=== PATIENT | female | born 1975 | race Caucasian/White ===

== ENCOUNTER → 2016-09-15 | Outpatient (CLI) | payer OTHER ==
[2015-12-10 10:24] VITALS: BP 113/70
[~2016-09-15] MED LIST: ALPR0.25 PO; BUPR150T8 PO; DICL75TA PO; LORA10TA68 PO; PANT40TA3 PO; TOPI25TA32 PO
[2016-09-16 16:22] LABS: HEP B SURFACE ABDY Non Reactive (.)
== END | disposition home or self-care (01) ==
LOC: LAB 15:49
PROVIDERS: ATTEND Nurse Practitioner Family
DX: Z00.00 Encounter for general adult medical examination without abnormal findings (principal)
CPT/HCPCS: 36415; 86706; 86735; 86762; 86765; 86787

== ENCOUNTER 2016-10-27 22:19 | Inpatient (IN) | payer OTHER ==
[~2016-10-27] VITALS: Ht 160 cm; Wt 62.4 kg
[2016-10-27 22:52] LABS: BASO # 0.1 x10^3/uL (0.0-0.2); BASO % 1 % (0-3); EOS % 1 % (0-3); HEMATOCRIT 38.8 % (36.0-47.0); HEMOGLOBIN 12.8 g/dL (12.0-15.5); LYMPH # 2.1 x10^3/uL (1.0-4.8); LYMPH % 31 % (24-48); MEAN CORPUSCULAR HEMOGLOBIN 32 pg (25-35); MEAN CORPUSCULAR HGB CONC 33 g/dL (31-37); MEAN CORPUSCULAR VOLUME 98 fL (79-100); MONO % 9 % (0-9); NEUT % 58 % (31-73); PLATELET COUNT 202 x10^3/uL (140-400); RED BLOOD COUNT 3.96 x10^6/uL (3.50-5.40); RED CELL DISTRIBUTION WIDTH 12.9 % (11.5-14.5)
[2016-10-27 23:04] LABS: CALCIUM 8.8 mg/dL (8.5-10.1); CREATININE 0.8 mg/dL (0.6-1.0); GFR 78.7; POTASSIUM 3.5 mmol/L (3.5-5.1)
[2016-10-27 23:10] LABS: ALBUMIN 3.6 g/dL (3.4-5.0); DIRECT BILIRUBIN 0.1 mg/dL (0.0-0.2); MAGNESIUM 1.8 mg/dL (1.8-2.4); TOTAL BILIRUBIN 0.3 mg/dL (0.2-1.0)
--- NOTE | 2016-10-27 23:36 | PHYS DOC ---
Past Medical History Past Medical History: Hepatitis, Migraines Past Surgical History: Other Additional Past Surgical Histo: Right Wrist surgery; endometrial ablation Alcohol Use: Occasionally Drug Use: None Adult General Chief Complaint Chief Complaint: CHEST PAIN HPI HPI Patient is a 40 year old female who drove herself to the emergency department with the complaint of midsternal chest pain. The patient was out running at about 9:15 PM when she developed midsternal chest pain that went through to her back. It was about a 2-3 out of 10. She had no nausea, no diaphoresis, no shortness of air with it. She slowed down and walked and went home and it did improve. She ended up deciding to come in and get it checked out. On arrival it' s about a 2 out of 10. She had this pain once before a couple of months ago when she was at the gym running on the treadmill. She stopped running and the pain went away by itself. She had her blood pressure checked and it was okay, she never did get it checked out. Other than that she's had no episodes of chest pain. Patient denies history of hypertension, diabetes, or elevated cholesterol. She previously smoked cigarettes but she quit. She has no family history. PCP Dr. 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 Review of Systems Review of Systems Constitutional: Denies fever or chills [] Eyes: Denies change in visual acuity, redness, or eye pain [] HENT: Denies nasal congestion or sore throat [] Respiratory: Denies cough or shortness of breath [] Cardiovascular: As in history of present illness GI: Denies abdominal pain, nausea, vomiting, bloody stools or diarrhea [] : Denies dysuria or hematuria [] Musculoskeletal: Denies back pain or joint pain [] Integument: Denies rash or skin lesions [] Neurologic: Denies headache, focal weakness or sensory changes [] Allergies Allergies Allergies Coded Allergies Type Severity Reaction Last Updated Verified propoxyphene Allergy Intermediate Hives 02/25/14 Yes Physical Exam Physical Exam Constitutional: Well developed, well nourished, no acute distress, non-toxic appearance. Alert, mentating normally, vital signs stable HENT: Normocephalic, atraumatic, bilateral external ears normal, nose normal. [ ] Eyes: conjunctiva normal, no discharge. [] Neck: Normal range of motion, no stridor. [] Cardiovascular:Heart rate regular rhythm, no murmur [] Lungs & Thorax: Bilateral breath sounds clear to auscultation [] Abdomen: Bowel sounds normal, soft, no tenderness, no masses, no pulsatile masses. [] Skin: Warm, dry, no erythema, no rash. [] Extremities: No tenderness, no cyanosis, no clubbing, ROM intact, no edema. [] Neurologic: Alert and oriented X 3, normal motor function, normal sensory function, no focal deficits noted. [] Current Patient Data Vital Signs Vital Signs Date Time Temp Pulse Resp B/P (MAP) Pulse Ox O2 Delivery O2 Flow Rate FiO2 10/27/16 23:15 66 16 141/85 (103) 99 Room Air 10/27/16 22:25 99.0 99.0 Lab Values Laboratory Tests Test 10/27/16 22:30 White Blood Count 7.0 x10^3/uL (4.0-11.0) Red Blood Count 3.96 x10^6/uL (3.50-5.40) Hemoglobin 12.8 g/dL (12.0-15.5) Hematocrit 38.8 % (36.0-47.0) Mean Corpuscular Volume 98 fL (79-100) Mean Corpuscular Hemoglobin 32 pg (25-35) Mean Corpuscular Hemoglobin Concent 33 g/dL (31-37) Red Cell Distribution Width 12.9 % (11.5-14.5) Platelet Count 202 x10^3/uL (140-400) Neutrophils (%) (Auto) 58 % (31-73) Lymphocytes (%) (Auto) 31 % (24-48) Monocytes (%) (Auto) 9 % (0-9) Eosinophils (%) (Auto) 1 % (0-3) Basophils (%) (Auto) 1 % (0-3) Neutrophils # (Auto) 4.1 x10^3uL (1.8-7.7) Lymphocytes # (Auto) 2.1 x10^3/uL (1.0-4.8) Monocytes # (Auto) 0.6 x10^3/uL (0.0-1.1) Eosinophils # (Auto) 0.1 x10^3/uL (0.0-0.7) Basophils # (Auto) 0.1 x10^3/uL (0.0-0.2) Prothrombin Time 13.0 SEC (11.7-14.0) Prothrombin Time INR 1.0 (0.8-1.1) Sodium Level 138 mmol/L (136-145) Potassium Level 3.5 mmol/L (3.5-5.1) Chloride Level 103 mmol/L (98-107) Carbon Dioxide Level 28 mmol/L (21-32) Anion Gap 7 (6-14) Blood Urea Nitrogen 17 mg/dL (7-20) Creatinine 0.8 mg/dL (0.6-1.0) Estimated GFR (Cockcroft-Gault) 78.7 Glucose Level 106 mg/dL (70-99) H Calcium Level 8.8 mg/dL (8.5-10.1) Magnesium Level 1.8 mg/dL (1.8-2.4) Total Bilirubin 0.3 mg/dL (0.2-1.0) Direct Bilirubin 0.1 mg/dL (0.0-0.2) Aspartate Amino Transferase (AST) 17 U/L (15-37) Alanine Aminotransferase (ALT) 29 U/L (14-59) Alkaline Phosphatase 50 U/L (46-116) Creatine Kinase 117 U/L (26-192) Creatine Kinase MB (Mass) 1.0 ng/mL (0.0-3.6) Creatine Kinase MB Relative Index 0.9 % (0-4) Troponin I Quantitative 0.024 ng/mL (0.000-0.055) YH-Chj-E-Type Natriuretic Peptide 27 pg/mL (0-124) Total Protein 7.0 g/dL (6.4-8.2) Albumin 3.6 g/dL (3.4-5.0) Laboratory Tests 10/27/16 22:30 Laboratory Tests 10/27/16 22:30 EKG EKG 12-lead EKG read by me. Sinus rhythm. Heart rate 54. There are no acute ST or T wave changes indicative of ischemia or infarction. No STEMI. 2229 [] Radiology/Procedures Radiology/Procedures One view portable chest x-ray read by me. No acute cardiopulmonary abnormality. [] Course & Med Decision Making Course & Med Decision Making Pertinent Labs and Imaging studies reviewed. (See chart for details) 40-year-old female presents after an episode of mid chest pain which occurred with running and improved with rest. EKG normal. Troponin is mildly elevated at 0.024. I advised the patient that I would recommend admission for serial enzymes and cardiology consultation. She is agreeable to that plan. She remained stable and pain-free in the emergency department. I discussed the case with Dr. gonzalez, [facility]. He will admit the patient. I wrote bridge orders. [] Dragon Disclaimer Dragon Disclaimer This electronic medical record was generated, in whole or in part, using a voice recognition dictation system. Departure Departure Impression: Primary Impression: Chest pain Additional Impression: Elevated troponin Disposition: ADMITTED INPATIENT Admitting Physician: Jessica Gonzalez Condition: STABLE Referrals: JACKELYN VÁZQUEZ MD (PCP) Problem Qualifiers JASKARAN DENIS MD October 27, 2016 23:36
[2016-10-27] MEDS ORDERED: ASPIRIN CHEWABLE 81 MG TABLET. PO ONE (23:55)
[2016-10-28] VITALS (15 sets, daily range): BP systolic 98–130; BP diastolic 55–78
[2016-10-28] MEDS ORDERED: ALPRAZolam 0.25 MG TABLET PO PRN ×2 (01:30→12:45)
--- NOTE | 2016-10-28 06:15 | EKG ---
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
--- NOTE | 2016-10-28 08:00 | RAD ---
Portable chest, 10/27/2016: History: Chest pain The heart size and pulmonary vascularity are normal. No pulmonary infiltrates are seen. There is no evidence of pleural fluid. IMPRESSION: No acute cardiopulmonary abnormality is detected.
--- NOTE | 2016-10-28 08:54 | PDOC2 ---
LON DUMONT WIRE STRAIGHTENER 10/28/16 0854: CARDIAC CONSULT DATE OF CONSULT Date of Consult DATE: 10/28/16 TIME: 08:36 REASON FOR CONSULT Reason for Consult: Chest pain, elevated trop REFERRING PHYSICIAN Referring Physician: Lito SOURCE Source: Chart review, Patient HISTORY OF PRESENT ILLNESS HISTORY OF PRESENT ILLNESS This is a pleasant 40 yo female admitted for complains of chest pain. Reports that at 1845 last night he was eating apple when she started having midsternal pressure. This was about 2/10 in intensity in 0-10 pain scale and thought that maybe the apple got stuck. This discomfort did not go away. She went ahead and run as part of her exercise and 8 minutes to her running her CP got worse radiated to her midback then to her shoulders. She felt nauseated. No significant diaphoresis but felt a little SOA. Lately she has been fatigue although prior to this she has been tolerating her exercise regimen which is 3- 4 times weekly running about 2-3 miles each time. Denies any prior CAD, VTE, falls or any injury. She did have an episode in August in which she had the same chest pain which went to her arm and jaw but resolved the same day and has not recurred till now. PAST MEDICAL HISTORY Cardiovascular: No pertinent hx Pulmonary: No pertinent hx CENTRAL NERVOUS SYSTEM: Migraine, Other (right ventricle arachnoid cyst 2005) GI: GERD Heme/Onc: No pertinent hx Hepatobiliary: Hep A/B/C (C) Psych: Anxiety, Depression Musculoskeletal: Other (carpal tunnel syndrome) Rheumatologic: No pertinent hx Infectious disease: Other (mononucleosis 2009) ENT: No pertinent hx Renal/: No pertinent hx Endocrine: Hypothyroidism Dermatology: No pertinent hx PAST SURGICAL HISTORY Past Surgical History: Other (right carpal tunnel release; endometrial ablation ) FAMILY HISTORY Family History: Coronary Artery Disease (grandfather paternal side), High Cholestrol, Hypertension (father), Other (father has AFIB) SOCIAL HISTORY Social History 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 Smoke: No (quit in 2002, >20 pk yr) ALCOHOL: occassional Drugs: Other (quit meth and cocaine in 2002) Lives: with Family CURRENT MEDICATIONS CURRENT MEDICATIONS Current Medications Medications (Trade) Dose Ordered Sig/Lauren Route PRN Reason Start Time Stop Time Status Last Admin Dose Admin Aspirin (Children'S Aspirin) 324 mg 1X ONCE PO 10/27/16 23:55 10/27/16 23:56 DC 10/28/16 00:01 Alprazolam (Xanax) 0.25 mg PRN Q8HRS PRN PO ANXIETY / AGITATION 10/28/16 01:30 10/28/16 01:34 ALLERGIES ALLERGIES: Coded Allergies: propoxyphene (Verified Allergy, Intermediate, Hives, 02/25/14) ROS Review of System 14 point ROS evaluated with pertinent positives noted per HPI PHYSICAL EXAM General: Alert, Oriented X3, Cooperative, No acute distress HEENT: Atraumatic, Mucous membr. moist/pink Lungs: Clear to auscultation, Normal air movement Heart: Regular rate, Normal S1, Normal S2, No murmurs Abdomen: Soft, No tenderness Extremities: No cyanosis, No edema Skin: No breakdown, No significant lesion Neuro: Normal speech, Sensation intact Psych/Mental Status: Mental status NL, Mood NL MUSCULOSKELETAL: Osteoarthritic changes both hands VITALS VITALS Vital Signs Date Time Temp Pulse Resp B/P (MAP) Pulse Ox O2 Delivery O2 Flow Rate FiO2 10/28/16 03:00 67 10/28/16 01:00 Room Air 10/28/16 00:45 97.7 22 130/78 (95) 100 97.7 LABS Lab: Laboratory Tests Test 10/27/16 22:30 10/28/16 05:40 White Blood Count 7.0 x10^3/uL (4.0-11.0) Red Blood Count 3.96 x10^6/uL (3.50-5.40) Hemoglobin 12.8 g/dL (12.0-15.5) Hematocrit 38.8 % (36.0-47.0) Mean Corpuscular Volume 98 fL (79-100) Mean Corpuscular Hemoglobin 32 pg (25-35) Mean Corpuscular Hemoglobin Concent 33 g/dL (31-37) Red Cell Distribution Width 12.9 % (11.5-14.5) Platelet Count 202 x10^3/uL (140-400) Neutrophils (%) (Auto) 58 % (31-73) Lymphocytes (%) (Auto) 31 % (24-48) Monocytes (%) (Auto) 9 % (0-9) Eosinophils (%) (Auto) 1 % (0-3) Basophils (%) (Auto) 1 % (0-3) Neutrophils # (Auto) 4.1 x10^3uL (1.8-7.7) Lymphocytes # (Auto) 2.1 x10^3/uL (1.0-4.8) Monocytes # (Auto) 0.6 x10^3/uL (0.0-1.1) Eosinophils # (Auto) 0.1 x10^3/uL (0.0-0.7) Basophils # (Auto) 0.1 x10^3/uL (0.0-0.2) Prothrombin Time 13.0 SEC (11.7-14.0) Prothromb Time International Ratio 1.0 (0.8-1.1) Sodium Level 138 mmol/L (136-145) Potassium Level 3.5 mmol/L (3.5-5.1) Chloride Level 103 mmol/L (98-107) Carbon Dioxide Level 28 mmol/L (21-32) Anion Gap 7 (6-14) Blood Urea Nitrogen 17 mg/dL (7-20) Creatinine 0.8 mg/dL (0.6-1.0) Estimated GFR (Cockcroft-Gault) 78.7 Glucose Level 106 mg/dL (70-99) Calcium Level 8.8 mg/dL (8.5-10.1) Magnesium Level 1.8 mg/dL (1.8-2.4) Total Bilirubin 0.3 mg/dL (0.2-1.0) Direct Bilirubin 0.1 mg/dL (0.0-0.2) Aspartate Amino Transf (AST/SGOT) 17 U/L (15-37) Alanine Aminotransferase (ALT/SGPT) 29 U/L (14-59) Alkaline Phosphatase 50 U/L (46-116) Creatine Kinase 117 U/L (26-192) Creatine Kinase MB (Mass) 1.0 ng/mL (0.0-3.6) Creatine Kinase MB Relative Index 0.9 % (0-4) Troponin I Quantitative 0.024 ng/mL (0.000-0.055) 0.412 ng/mL (0.000-0.055) UF-Qon-L-Type Natriuretic Peptide 27 pg/mL (0-124) Total Protein 7.0 g/dL (6.4-8.2) Albumin 3.6 g/dL (3.4-5.0) ASSESSMENT/PLAN ASSESSMENT/PLAN 1. NSTEMI: noted t wave inversions to septal leads which improved with follow up EKG. Trop increased to 0.4 2. Migraine: takes topamax, seen by Dr. Sanders in the past. 3. Hx of anxiety/depression. 4. GERD: takes prilosec at home 5. Hx of Hep C 6. Hx of hypothyroidism Recommendations 1. LHC today, risks and benefits explained and agreeable to proceed 2. TSH, lipids today 3. ASA received in ED. 4. TTE today Problems: JENELLE ABBOTT MD 10/28/16 1813: CARDIAC CONSULT ALLERGIES ALLERGIES: Coded Allergies: propoxyphene (Verified Allergy, Intermediate, Hives, 02/25/14) ASSESSMENT/PLAN ASSESSMENT/PLAN Pt. seen and examined. Agree with above HYDROLOGY PROFESSOR note. Underwent balloon angioplasty of a small vessel in the distal ramus intermedius branch. Spasm/spontaneous dissection cannot be excluded. Meds to include ASA, Ticagrelor and Statin. Low dose calcium channel blockers if titrated. Will follow along. Echo wnl. Normal cardiac exam. Problems: LON DUMONT APRN October 28, 2016 08:54 JENELLE ABBOTT MD October 28, 2016 18:13
--- NOTE | 2016-10-28 09:26 | EKG ---
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
[2016-10-28 09:27] LABS: CHOLESTEROL/HDL RATIO 2.4
--- NOTE | 2016-10-28 09:31 | PDOC1 ---
History and Physical Past Medical History CENTRAL NERVOUS SYSTEM: Other (right ventricle arachnoid cyst 2005) GI: GERD Hepatobiliary: Hep A/B/C (C) Psych: Anxiety, Depression Infectious disease: Other (mononucleosis 2009) Past Surgical History Past Surgical History: Other (right carpal tunnel release; endometrial ablation ) Family History Family History: High Cholestrol, Hypertension (father) Social History Smoke: No (quit in 2002, >20 pk yr) ALCOHOL: occassional Drugs: Other (quit meth and cocaine in 2002) Current Problem List Problem List Problems Medical Problems: (1) Chest pain Status: Acute (2) Elevated troponin Status: Acute Current Medications Current Medications Current Medications Medications (Trade) Dose Ordered Sig/Lauren Start Time Stop Time Status Last Admin Dose Admin Alprazolam (Xanax) 0.25 mg PRN Q8HRS PRN 10/28/16 01:30 10/28/16 01:34 0.25 MG Aspirin (Children'S Aspirin) 324 mg 1X ONCE 10/27/16 23:55 10/27/16 23:56 DC 10/28/16 00:01 324 MG Allergies Allergies Allergies Coded Allergies Type Severity Reaction Last Updated Verified propoxyphene Allergy Intermediate Hives 02/25/14 Yes ROS Review of System CONSTITUTIONAL: No fever or chills EYES: No recent changes SKIN: No rash or itching CARDIOVASCULAR: chest pressure, no syncope, palpitations, or edema RESPIRATORY: No SOB or cough GASTROINTESTINAL: No nausea, vomiting or abdominal pain NEUROLOGICAL: No headaches or weakness ENDOCRINE: No cold or heat intolerance GENITOURINARY: No urgency or frequency of urination MUSCULOSKELETAL: No back pain or joint pain LYMPHATICS: No enlarged lymph nodes PSYCHIATRIC: No anxiety or depression Physical Exam Physical Exam GEN.: No apparent distress. Alert and oriented. HEENT: Head is normocephalic, atraumatic NECK: Supple. no jvd LUNGS: Clear to auscultation. normal airflow. HEART: RRR, S1, S2 present. Peripheral pulses intact ABDOMEN: Soft, nontender. Positive bowel sounds. EXTREMITIES: Without any cyanosis. NEUROLOGIC: Normal speech, normal tone PSYCHIATRIC: Normal affect, normal mood. SKIN: No ulcerations Vitals Vitals Vital Signs Date Time Temp Pulse Resp B/P (MAP) Pulse Ox O2 Delivery O2 Flow Rate FiO2 10/28/16 07:00 98.7 60 18 109/70 (83) 98 Room Air 98.7 Labs Labs Laboratory Tests Test 10/27/16 22:30 10/28/16 05:40 White Blood Count 7.0 x10^3/uL (4.0-11.0) Red Blood Count 3.96 x10^6/uL (3.50-5.40) Hemoglobin 12.8 g/dL (12.0-15.5) Hematocrit 38.8 % (36.0-47.0) Mean Corpuscular Volume 98 fL (79-100) Mean Corpuscular Hemoglobin 32 pg (25-35) Mean Corpuscular Hemoglobin Concent 33 g/dL (31-37) Red Cell Distribution Width 12.9 % (11.5-14.5) Platelet Count 202 x10^3/uL (140-400) Neutrophils (%) (Auto) 58 % (31-73) Lymphocytes (%) (Auto) 31 % (24-48) Monocytes (%) (Auto) 9 % (0-9) Eosinophils (%) (Auto) 1 % (0-3) Basophils (%) (Auto) 1 % (0-3) Neutrophils # (Auto) 4.1 x10^3uL (1.8-7.7) Lymphocytes # (Auto) 2.1 x10^3/uL (1.0-4.8) Monocytes # (Auto) 0.6 x10^3/uL (0.0-1.1) Eosinophils # (Auto) 0.1 x10^3/uL (0.0-0.7) Basophils # (Auto) 0.1 x10^3/uL (0.0-0.2) Prothrombin Time 13.0 SEC (11.7-14.0) Prothromb Time International Ratio 1.0 (0.8-1.1) Sodium Level 138 mmol/L (136-145) Potassium Level 3.5 mmol/L (3.5-5.1) Chloride Level 103 mmol/L (98-107) Carbon Dioxide Level 28 mmol/L (21-32) Anion Gap 7 (6-14) Blood Urea Nitrogen 17 mg/dL (7-20) Creatinine 0.8 mg/dL (0.6-1.0) Estimated GFR (Cockcroft-Gault) 78.7 Glucose Level 106 mg/dL (70-99) Calcium Level 8.8 mg/dL (8.5-10.1) Magnesium Level 1.8 mg/dL (1.8-2.4) Total Bilirubin 0.3 mg/dL (0.2-1.0) Direct Bilirubin 0.1 mg/dL (0.0-0.2) Aspartate Amino Transf (AST/SGOT) 17 U/L (15-37) Alanine Aminotransferase (ALT/SGPT) 29 U/L (14-59) Alkaline Phosphatase 50 U/L (46-116) Creatine Kinase 117 U/L (26-192) Creatine Kinase MB (Mass) 1.0 ng/mL (0.0-3.6) Creatine Kinase MB Relative Index 0.9 % (0-4) Troponin I Quantitative 0.024 ng/mL (0.000-0.055) 0.412 ng/mL (0.000-0.055) AH-Wxd-R-Type Natriuretic Peptide 27 pg/mL (0-124) Total Protein 7.0 g/dL (6.4-8.2) Albumin 3.6 g/dL (3.4-5.0) Triglycerides Level 47 mg/dL (0-150) Cholesterol Level 171 mg/dL (0-200) LDL Cholesterol, Calculated 91 mg/dL (0-100) VLDL Cholesterol, Calculated 9 mg/dL (0-40) Non-HDL Cholesterol Calculated 100 mg/dL (0-129) HDL Cholesterol 71 mg/dL (40-60) Cholesterol/HDL Ratio 2.4 Laboratory Tests Test 10/27/16 22:30 10/28/16 05:40 White Blood Count 7.0 x10^3/uL (4.0-11.0) Red Blood Count 3.96 x10^6/uL (3.50-5.40) Hemoglobin 12.8 g/dL (12.0-15.5) Hematocrit 38.8 % (36.0-47.0) Mean Corpuscular Volume 98 fL (79-100) Mean Corpuscular Hemoglobin 32 pg (25-35) Mean Corpuscular Hemoglobin Concent 33 g/dL (31-37) Red Cell Distribution Width 12.9 % (11.5-14.5) Platelet Count 202 x10^3/uL (140-400) Neutrophils (%) (Auto) 58 % (31-73) Lymphocytes (%) (Auto) 31 % (24-48) Monocytes (%) (Auto) 9 % (0-9) Eosinophils (%) (Auto) 1 % (0-3) Basophils (%) (Auto) 1 % (0-3) Neutrophils # (Auto) 4.1 x10^3uL (1.8-7.7) Lymphocytes # (Auto) 2.1 x10^3/uL (1.0-4.8) Monocytes # (Auto) 0.6 x10^3/uL (0.0-1.1) Eosinophils # (Auto) 0.1 x10^3/uL (0.0-0.7) Basophils # (Auto) 0.1 x10^3/uL (0.0-0.2) Prothrombin Time 13.0 SEC (11.7-14.0) Prothromb Time International Ratio 1.0 (0.8-1.1) Sodium Level 138 mmol/L (136-145) Potassium Level 3.5 mmol/L (3.5-5.1) Chloride Level 103 mmol/L (98-107) Carbon Dioxide Level 28 mmol/L (21-32) Anion Gap 7 (6-14) Blood Urea Nitrogen 17 mg/dL (7-20) Creatinine 0.8 mg/dL (0.6-1.0) Estimated GFR (Cockcroft-Gault) 78.7 Glucose Level 106 mg/dL (70-99) Calcium Level 8.8 mg/dL (8.5-10.1) Magnesium Level 1.8 mg/dL (1.8-2.4) Total Bilirubin 0.3 mg/dL (0.2-1.0) Direct Bilirubin 0.1 mg/dL (0.0-0.2) Aspartate Amino Transf (AST/SGOT) 17 U/L (15-37) Alanine Aminotransferase (ALT/SGPT) 29 U/L (14-59) Alkaline Phosphatase 50 U/L (46-116) Creatine Kinase 117 U/L (26-192) Creatine Kinase MB (Mass) 1.0 ng/mL (0.0-3.6) Creatine Kinase MB Relative Index 0.9 % (0-4) Troponin I Quantitative 0.024 ng/mL (0.000-0.055) 0.412 ng/mL (0.000-0.055) RV-Djk-F-Type Natriuretic Peptide 27 pg/mL (0-124) Total Protein 7.0 g/dL (6.4-8.2) Albumin 3.6 g/dL (3.4-5.0) Triglycerides Level 47 mg/dL (0-150) Cholesterol Level 171 mg/dL (0-200) LDL Cholesterol, Calculated 91 mg/dL (0-100) VLDL Cholesterol, Calculated 9 mg/dL (0-40) Non-HDL Cholesterol Calculated 100 mg/dL (0-129) HDL Cholesterol 71 mg/dL (40-60) Cholesterol/HDL Ratio 2.4 VTE Prophylaxis Ordered VTE Prophylaxis Devices: Yes VTE Pharmacological Prophylaxi: Yes SHIVANI GREEN MD October 28, 2016 09:31
[2016-10-28] MEDS ORDERED: NITROGLYCERIN 200 MCG/2 ML SYRINGE FOR CATH/VASC LAB. ONE (09:40)
[2016-10-28] MEDS ORDERED: VERAPAMIL 5 MG/2 ML VIAL. ONE (09:40)
[2016-10-28] MEDS ORDERED: fentaNYL PF VIAL 100 MCG/2 ML VIAL ONE ×3 (09:41→11:39)
[2016-10-28] MEDS ORDERED: MIDAZOLAM HCL/PF 2 MG/2 ML VIAL. ONE ×3 (09:41→11:39)
[2016-10-28] MEDS ORDERED: HEPARIN for IV BOLUS 10,000 UNIT/10 ML VIAL. ONE (09:41)
[2016-10-28] MEDS ORDERED: LIDOCAINE 2% 20 ML VIAL. ONE (09:54)
[2016-10-28] MEDS ORDERED: IOHEXOL 300 MG/ML 100ML VIAL. ONE (09:54)
[2016-10-28] MEDS ORDERED: ASPIRIN 325 MG TABLET ONE (10:01)
[2016-10-28] MEDS ORDERED: IOHEXOL 300 MG/ML 100ML VIAL. IART ONE (10:15)
[2016-10-28] MEDS ORDERED: MIDAZOLAM HCL/PF 2 MG/2 ML VIAL. IV ONE (10:15)
[2016-10-28] MEDS ORDERED: NITROGLYCERIN 200 MCG/2 ML SYRINGE FOR CATH/VASC LAB. IART ONE (10:15)
[2016-10-28] MEDS ORDERED: fentaNYL PF VIAL 100 MCG/2 ML VIAL IV ONE (10:15)
[2016-10-28] MEDS ORDERED: HEPARIN for IV BOLUS 10,000 UNIT/10 ML VIAL. IART ONE (10:15)
[2016-10-28] MEDS ORDERED: VERAPAMIL 5 MG/2 ML VIAL. IART ONE (10:15)
[2016-10-28] MEDS ORDERED: NITROPRUSSIDE SODIUM 50 MG/2 ML VIAL IV ONE (10:25)
[2016-10-28] MEDS ORDERED: TIROFIBAN 5MG -0.9% NS 100 ML IV ONE ×2 (10:38→11:00)
[2016-10-28] MEDS ORDERED: PANTOPRAZOLE IV PUSH 40 MG VIAL. IVP ONE (10:45)
[2016-10-28] MEDS ORDERED: NITROPRUSSIDE 100MCG/ML SYRINGE. INT CORON ONE (11:00)
[2016-10-28] MEDS ORDERED: TICAGRELOR 90 MG TABLET. ONE (11:04)
--- NOTE | 2016-10-28 11:11 | HP ---
ADMIT DATE: 10/28/2016 CHIEF COMPLAINT: Chest pressure. HISTORY OF PRESENT ILLNESS: A 40-year-old female patient with prior history of dysphagia and GERD who presented to the ER with complaints of chest pressure. Symptoms started yesterday evening around 7 o'clock after she ate some apples. She described it as a midsternal chest pressure, and she tried to drink some water. However, symptoms did not go away. She works at a [employer], and she tried to take some aspirin, 4 tablets, and symptoms slowly weaned off. By the time she presented to the ER, she denies any chest pain. Her symptoms went to both shoulders and also back of her chest. The patient was working almost like 3 miles on treadmill every day. She never felt any chest pain or palpitations or syncope. She had a significant family history of coronary artery disease. At the time of my examination this morning, the patient denies any chest pain or shortness of breath. I did review her EKGs. Initial EKG showed T-wave inversions in V1 and V2, and repeat EKG showed resolution of T-wave inversions. PAST MEDICAL HISTORY: Migraine, GERD, depression, anxiety, and hepatitis A, B, and C. PAST SURGICAL HISTORY: Right carpal tunnel disease and endometrial ablation. FAMILY HISTORY: Coronary artery disease in grandfather and hyperlipidemia, hypertension, and one of her cousins below 40 years. SOCIAL HISTORY: Quit smoking, former smoker, more than 20 years. No alcohol, no drug abuse. REVIEW OF SYSTEMS: Please see my electronic H and P. PHYSICAL EXAMINATION: Please see my electronic H and P. ALLERGIES: PROPOXYPHENE. LABORATORY FINDINGS: CBC within normal limits. Chemistry is within normal limits. Troponin first set 0.024, second one 0.42. Lipid panel within normal limits. TSH 5.84. EKG personally reviewed. T-wave inversions in lead V1 and V2. On second EKG, T-wave inversion is resolved. IMAGING STUDIES: Chest x-ray: No acute process seen. ASSESSMENT AND PLAN: 1. Chest pressure. Unclear etiology, possible differentials of dysphagia, esophageal dysmotility, ACS, and non-ST elevation myocardial infarction. 2. Anxiety and depression. 3. History of gastroesophageal reflux disease. 4. History of migraines. PLAN: 1. The patient received 4 baby aspirin before her arrival, and currently she is scheduled for cardiac catheterization at 10:00 a.m. this morning. Discussed with Cardiology team. No further anticoagulation needed at this time. 2. I will start her on IV Protonix and also consult Gastroenterology for further workup. 3. Home medications are reviewed and reconciled. 4. PRN Motrin for intractable headaches, 5, post surgical care. Plan discussed with patient and mother at bedside. SHIVANI GREEN MD DR: BONNIE/roger JOB#: [id number] / [id number] MICAELA
[2016-10-28] MEDS ORDERED: TICAGRELOR 90 MG TABLET. PO ONE (11:15)
[2016-10-28] MEDS ORDERED: ATORVASTATIN CALCIUM 40 MG TABLET. PO ONE (11:15)
--- NOTE | 2016-10-28 12:49 | PDOC2 ---
GI CONSULT Reason For Consult: Dysphagia HPI: HPI: 40 y/o female who was admitted w/ chest pain which began after eating an apple yesterday, worsened while running w/ radiation to back and shoulders. Had elevated troponin w/ EKG changes and cardiac cath today w/ tight vessel which was ballooned. Currently pain free. Reviewed other notes, some suggestion of the apple getting stuck. She denies this actually, and tells me h/o dysphagia w / meats that occurs ~6 times yearly, felt in oropharynx, can't remember the last time this occurred. Never regurg. Additional h/o GERD controlled w/ Prilosec QD. EGD by Dr. Yovanny Cates on 02/25/14 showed Grade 1 reflux esophagitis, gastritis, and normal small bowel. No previous colonoscopy. Some nausea yesterday w/ pain, none now. Denies vomiting, abd pain, weight loss, diarrhea, constipation, hematochezia, melena. Has had increased appetite w/ exercising more lately. H/o Hep C s/p treatment w/ ribavirin and interferon, now w/ undetectable viral load. PMH: PMH: Hep C (treated), GERD, dysphagia, hypothyroidism, endometriosis, CTS, depression /anxiety, migraines, right carpal tunnel release, endometrial ablation FH: Family History: Cancer (colon cancer - aunt), CAD, CVA, Hyperlipidemia, Hypertension, Other (A Fib, Mccloud's esophagus) Social History: Smoke: No (quit in 2002, >20 pk yr) ALCOHOL: occassional Drugs: Other (quit meth and cocaine in 2002) ROS: GEN: Denies fevers, chills, sweats HEENT: Denies blurred vision, sore throat CV: chest pain resolved RESP: Denies shortness of air, cough GI: Per HPI : Denies hematuria, dysuria ENDO: Denies weight changes NEURO: Denies confusion, dizziness MSK: Denies weakness, joint pain/swelling SKIN: Denies jaundice, pruritus Vitals: Vitals: Vital Signs Date Time Temp Pulse Resp B/P (MAP) Pulse Ox O2 Delivery O2 Flow Rate FiO2 10/28/16 11:23 18 Room Air 10/28/16 11:06 63 100 2.0 10/28/16 11:00 98.6 102/71 (81) 98.6 Labs: Labs: Laboratory Tests Test 10/27/16 22:30 10/28/16 05:40 White Blood Count 7.0 x10^3/uL (4.0-11.0) Red Blood Count 3.96 x10^6/uL (3.50-5.40) Hemoglobin 12.8 g/dL (12.0-15.5) Hematocrit 38.8 % (36.0-47.0) Mean Corpuscular Volume 98 fL (79-100) Mean Corpuscular Hemoglobin 32 pg (25-35) Mean Corpuscular Hemoglobin Concent 33 g/dL (31-37) Red Cell Distribution Width 12.9 % (11.5-14.5) Platelet Count 202 x10^3/uL (140-400) Neutrophils (%) (Auto) 58 % (31-73) Lymphocytes (%) (Auto) 31 % (24-48) Monocytes (%) (Auto) 9 % (0-9) Eosinophils (%) (Auto) 1 % (0-3) Basophils (%) (Auto) 1 % (0-3) Neutrophils # (Auto) 4.1 x10^3uL (1.8-7.7) Lymphocytes # (Auto) 2.1 x10^3/uL (1.0-4.8) Monocytes # (Auto) 0.6 x10^3/uL (0.0-1.1) Eosinophils # (Auto) 0.1 x10^3/uL (0.0-0.7) Basophils # (Auto) 0.1 x10^3/uL (0.0-0.2) Prothrombin Time 13.0 SEC (11.7-14.0) Prothromb Time International Ratio 1.0 (0.8-1.1) Sodium Level 138 mmol/L (136-145) Potassium Level 3.5 mmol/L (3.5-5.1) Chloride Level 103 mmol/L (98-107) Carbon Dioxide Level 28 mmol/L (21-32) Anion Gap 7 (6-14) Blood Urea Nitrogen 17 mg/dL (7-20) Creatinine 0.8 mg/dL (0.6-1.0) Estimated GFR (Cockcroft-Gault) 78.7 Glucose Level 106 mg/dL (70-99) Calcium Level 8.8 mg/dL (8.5-10.1) Magnesium Level 1.8 mg/dL (1.8-2.4) Total Bilirubin 0.3 mg/dL (0.2-1.0) Direct Bilirubin 0.1 mg/dL (0.0-0.2) Aspartate Amino Transf (AST/SGOT) 17 U/L (15-37) Alanine Aminotransferase (ALT/SGPT) 29 U/L (14-59) Alkaline Phosphatase 50 U/L (46-116) Creatine Kinase 117 U/L (26-192) Creatine Kinase MB (Mass) 1.0 ng/mL (0.0-3.6) Creatine Kinase MB Relative Index 0.9 % (0-4) Troponin I Quantitative 0.024 ng/mL (0.000-0.055) 0.412 ng/mL (0.000-0.055) NE-Ifh-I-Type Natriuretic Peptide 27 pg/mL (0-124) Total Protein 7.0 g/dL (6.4-8.2) Albumin 3.6 g/dL (3.4-5.0) Triglycerides Level 47 mg/dL (0-150) Cholesterol Level 171 mg/dL (0-200) LDL Cholesterol, Calculated 91 mg/dL (0-100) VLDL Cholesterol, Calculated 9 mg/dL (0-40) Non-HDL Cholesterol Calculated 100 mg/dL (0-129) HDL Cholesterol 71 mg/dL (40-60) Cholesterol/HDL Ratio 2.4 Thyroid Stimulating Hormone (TSH) 5.843 uIU/mL (0.358-3.74) Allergies: Coded Allergies: propoxyphene (Verified Allergy, Intermediate, Hives, 02/25/14) Medications: Current Medications Medications (Trade) Dose Ordered Sig/Lauren Route PRN Reason Start Time Stop Time Status Last Admin Dose Admin Aspirin (Children'S Aspirin) 324 mg 1X ONCE PO 10/27/16 23:55 10/27/16 23:56 DC 10/28/16 00:01 Alprazolam (Xanax) 0.25 mg PRN Q8HRS PRN PO ANXIETY / AGITATION 10/28/16 01:30 10/28/16 01:34 Nitroglycerin (Nitroglycerin) 200 mcg 1X ONCE IART 10/28/16 10:15 5/18/17 10:16 DC 10/28/16 10:51 Verapamil HCl (Verapamil) 2.5 mg 1X ONCE IART 10/28/16 10:15 10/28/16 10:16 DC 10/28/16 10:51 Heparin Sodium (Porcine) (Heparin Sodium) 2,500 unit 1X ONCE IART 10/28/16 10:15 10/28/16 10:16 DC 10/28/16 10:57 Heparin Sodium/ Sodium Chloride 1,000 unit 1X ONCE IART 10/28/16 10:15 10/28/16 10:16 DC 10/28/16 10:50 Midazolam HCl (Versed) 2 mg 1X ONCE IV 10/28/16 10:15 10/28/16 10:16 DC 10/28/16 10:53 Fentanyl Citrate (Fentanyl 2ml Vial) 100 mcg 1X ONCE IV 10/28/16 10:15 10/28/16 10:16 DC 10/28/16 10:53 Iohexol (Omnipaque 300 Mg/ml) 100 ml 1X ONCE IART 10/28/16 10:15 10/28/16 10:16 DC 10/28/16 10:55 Pantoprazole Sodium (Protonix Vial) 40 mg 1X ONCE IVP 10/28/16 10:45 10/28/16 10:46 DC 10/28/16 12:26 Sodium Nitroprusside (Nipride) 50 mcg 1X ONCE INT CORON 10/28/16 11:00 10/28/16 11:01 DC 10/28/16 10:54 Tirofiban/Sodium Chloride 100 ml @ 0 mls/hr 1X ONCE IV 10/28/16 11:00 10/28/16 11:01 DC 10/28/16 10:54 Ticagrelor (Brilinta) 180 mg 1X ONCE PO 10/28/16 11:15 10/28/16 11:16 DC 10/28/16 11:12 Atorvastatin Calcium (Lipitor) 80 mg 1X ONCE PO 10/28/16 11:15 10/28/16 11:16 DC 10/28/16 12:28 Imaging: Imaging: CXR 10/27/16 IMPRESSION: No acute cardiopulmonary abnormality is detected. PE: GEN: NAD HEENT: Atraumatic, PERRL LUNGS: CTAB HEART: RRR ABD: NABS, S/ND/NT EXTREMITY: No edema SKIN: No rashes, no jaundice NEURO/PSYCH: A & O 3 A/P: A/P: Chest pain, elevated troponin, abnormal EKG s/p cardiac cath -per cardiology GERD -controlled w/ PPI -previous EGD in 2013 Dysphagia -h/o this, felt in oropharynx, occurs 6 times yearly w/ meats, can't remember last occurrence CRC, FH colon cancer -- No dysphagia currently. Monitor this, plan for outpt EGD if recurs. Restart PPI. Screening colonoscopy between ages 45-50. HUE RADFORD October 28, 2016 12:48
[2016-10-28] MEDS: PANTOPRAZOLE 40 MG TABLET.DR. PO SCH (13:00)
[2016-10-28] MEDS ORDERED: ACETAMINOPHEN 325 MG TABLET. PO PRN ×2 (13:15→14:30)
--- NOTE | 2016-10-28 17:51 | CARD ---
APPROVED REPORT Procedure(s) performed: [facility] + Coronary angiography PTCA of LCx. HISTORY : The patient is a 40 year-old female with a history of . INDICATION The indication(s) include : non-STEMI . PROCEDURE NARRATIVE The patient was brought electively to the cardiac catheterization lab. A timeout was performed confi rming the patient's name, date of , procedure, and site of procedure. All necessary personnel w ere wearing the appropriate protective equipment and radiation monitor devices. After explaining the risks and benefits of the procedure and alternatives, informed consent was obtained. (See nursing no joya for medications administered). The right wrist was sterilely prepped and draped in the usual fas hion. The right wrist was infiltrated with 1 mL of 2% lidocaine for subcutaneous anesthesia. A 6 Fr ench Terumo glide sheath was inserted into the right radial artery without difficulty. Right and lef t coronary angiography was performed using a 6Fr TIG 4.0 catheter. Left ventricular end diastolic pr essure was obtained with a pigtail catheter and pullback was performed after left ventriculography. All catheter exchanges and advancements were performed over a guidewire. At case completion the rig t radial sheath was removed and a Terumo radial band was applied with 13 ml of air. The patient tole rated the procedure well and there were no immediate complications. HEMODYNAMICS: LVEDP 18 mm Hg No gradient on LV to aortic pullback. LEFT VENTRICULOGRAM: EF 55% Anterobasal: Normal. Anterolateral: Subtle hypokinesis. Apical: Normal Diaphragmatic: Normal Posterobasal: Normal CORONARY ANGIOGRAPHY: LM is a large caliber vessel with normal angiographic appearance. LAD is a large caliber vessel with normal angiographic appearance. Ramus is a moderate caliber vessel with abrupt tapering in the mid segment prior to a trifurcation. T here is a subtotal occlusion/spasm at this area in a vessel that is approximately 1 mm. LCx is a small caliber congenitally diminutive vessel with no significant disease. RCA is a large caliber dominant vessel with normal angiographic appearance. Of note, there is a septa l photographer scientific originating from the RCA ostium that likely supplies the interventricular septum. RPDA and RPL are moderate caliber vessels with normal angiographic appearance. INTERVENTIONAL TECHNIQUE: Based upon the presenting symptoms, angiographic findings and chest pain that did not resolve despite multiple rounds of nipride, NTG and verapamil via the intracoronary route an intervention was plannurys d. Heparin and Tirofiban were used for anticoagulation. Through a 6F EBU 3.5 guide catheter, a 0.014' ' Prowater wire was used to cross the ramus subtotal occlusion. PTCA was performed with a Trek 2.0/15 balloon at nominal pressures. There was improvement in the flow to AQUILINO 3 with residual dissection l ikely, the source of initial occlusion. Given the small caliber nature of the vessel further interven tion was deferred. The patient tolerated the procedure well and [facility]. Conclusion 1. One vessel CAD involving the Ramus 2. Normal LV function. EF 55% 3. PTCA of the distal ramus. 4. Possible coronary spasm versus isolated coronary dissection 5. Mild congenitally variant anatomy as noted above. Recommendations ASA 81mg daily Ticagrelor 90mg bid Atorvastatin 40mg daily Low dose amlodipine if tolerated.
[2016-10-28] MEDS ORDERED: HYDROcodone/APAP 5/325MG 1 TAB TABLET PO PRN (18:00)
--- NOTE | 2016-10-28 18:04 | CARD ---
APPROVED REPORT EXAM: Two-dimensional and M-mode echocardiogram with Doppler and color Doppler. Other Information Quality : Average Rhythm : NSR INDICATION Cardiac Disease: CAD Chest Pain 2D DIMENSIONS RVDd2.9 (2.9-3.5cm)Left Atrium(2D)3.0 (1.6-4.0cm) IVSd0.7 (0.7-1.1cm)Aortic Root(2D)2.3 (2.0-3.7cm) LVDd4.3 (3.9-5.9cm)LVOT Diameter2.0 (1.8-2.4cm) PWd0.7 (0.7-1.1cm)LVDs2.8 (2.5-4.0cm) FS (%) 24.8 %SV52.5 ml LVEF(%)54.4 (>50%) Aortic Valve AoV Peak Ferdinand.127.1cm/sAoV VTI22.8cm AO Peak GR.6.5mmHgLVOT Peak Ferdinand.98.2cm/s LVOT VTI 20.68cmAO Mean GR.3mmHg COLIN (VMAX)2.68es1PPI (VTI)2.78cm2 Mitral Valve MV E Ajagntdc50.1cm/sMV DECEL [id number] MV A Lcedndvq38.0cm/sMV E Mean Gr.2mmHg MV [id number]/A Ratio1.4 MV A [id number] (PHT)4.36cm2 TDI E/Lateral E'4.6E/Medial E'7.2 Pulmonary Valve PV Peak Yydkdanv43.0cm/sPV Peak Grad.2mmHg RVOT VTI14.5cm Tricuspid Valve TR P. Ileexjqj043pz/sRAP [id number] TR Peak Gr.94nfHyRLNC22obJq Pulmonary Vein S1 Pflsnmdd35.8cm/sD2 Icjbgbef70.4cm/s LEFT VENTRICLE The left ventricle is normal size. There is normal left ventricular wall thickness. Left ventricle sy stolic function is normal. The Ejection Fraction is 50-55%. There is normal LV segmental wall motion. The left ventricular diastolic function and filling is normal for age. There is no ventricular septa l defect visualized. RIGHT VENTRICLE The right ventricle is normal size. The right ventricular systolic function is normal. ATRIA The left atrium size is normal. The right atrium size is normal. The interatrial septum is intact wit h no evidence for an atrial septal defect or patent foramen ovale as noted on 2-D or Doppler imaging. AORTIC VALVE The aortic valve is normal in structure and function. The aortic valve is trileaflet. Doppler and Col or Flow revealed no significant aortic regurgitation. There is no significant aortic valvular stenosi s. MITRAL VALVE The mitral valve leaflets are thickened. There is no mitral valve stenosis. Doppler and Color Flow re vealed no mitral valve regurgitation noted. TRICUSPID VALVE The tricuspid valve is normal in structure and function. Doppler and Color Flow revealed mild tricusp id regurgitation. The PA pressure was estimated at 38 mmHg. There is no tricuspid valve stenosis. PULMONIC VALVE The pulmonic valve is not well visualized. Doppler and Color Flow revealed no pulmonic valvular regur gitation. There is no pulmonic valvular stenosis. GREAT VESSELS The aortic root is normal in size. Normal pulmonary venous flow (Doppler). The IVC is dilated and col lapses <50% with inspiration. PERICARDIAL EFFUSION There is no evidence of significant pericardial effusion. Critical Notification Critical Value: No <Conclusion> Left ventricle systolic function is normal. The Ejection Fraction is 50-55%. There is normal LV segmental wall motion.
[2016-10-28] MEDS: buPROPion SR 150 MG TABLET.SA PO SCH (20:50)
[2016-10-28] MEDS: TICAGRELOR 90 MG TABLET. PO SCH (20:50)
[2016-10-28] MEDS ORDERED: TOPIRAMATE 25 MG TABLET. PO SCH (21:00)
[2016-10-28] MEDS ORDERED: ATORVASTATIN CALCIUM 40 MG TABLET. PO SCH (21:00)
[2016-10-29 03:44] VITALS: BP 104/58
[2016-10-29 07:00] VITALS: BP 99/58
[2016-10-29] MEDS ORDERED: ASPIRIN ENTERIC COATED 81 MG TABLET.DR. PO SCH (08:00)
--- NOTE | 2016-10-29 08:46 | PDOC ---
Subjective: Subjective: No GI complaints, specifically no swallowing issues. Objective: Objective: Per RN - DC today, no dysphagia. Vital Signs: Vital Signs Date Time Temp Pulse Resp B/P (MAP) Pulse Ox O2 Delivery O2 Flow Rate FiO2 10/29/16 08:34 Room Air 10/29/16 03:44 98.3 75 16 104/58 (73) 98 98.3 10/28/16 11:06 2.0 Labs: Laboratory Tests Test 10/28/16 17:29 Troponin I Quantitative 0.671 ng/mL PE: GEN: NAD, sitting up in bed eating breakfast LUNGS: CTAB HEART: RRR ABD: NABS, S/ND/NT NEURO/PSYCH: A & O 3 A/P: GERD, dysphagia -GERD controlled w/ PPI, no dysphagia currently, previous EGD (w/o dilation) in 2013 CRC, FH colon cancer -- DC per primary/cardio. Continue PPI EGD w/ dilation as outpt when/if dysphagia recurs. Screening colonoscopy age 45-50. HUE RADFORD October 29, 2016 08:46
[2016-10-29] MEDS ORDERED: LISINOPRIL 5 MG TABLET. PO SCH ×2 (09:00)
[2016-10-29] MEDS ORDERED: amLODIPine BESYLATE 2.5 MG TABLET PO SCH (09:00)
[2016-10-29 09:35] VITALS: BP 98/62
[2016-10-29] MEDS: PANTOPRAZOLE 40 MG TABLET.DR. PO SCH (09:40)
[2016-10-29] MEDS: buPROPion SR 150 MG TABLET.SA PO SCH (09:40)
[2016-10-29] MEDS: TICAGRELOR 90 MG TABLET. PO SCH (09:40)
--- NOTE | 2016-10-29 10:08 | PDOC ---
LON DUMONT [employer] SERVICE CONSULTANT 10/29/16 1008: CARDIO Progress Notes Date and Time Date of Service 10/29/2016 Time of Evaluation 0940 Subjective Subjective: No Chest Pain, No shortness of breath, No Palpitations, No Dizziness Vitals Vitals Vital Signs Date Time Temp Pulse Resp B/P (MAP) Pulse Ox O2 Delivery O2 Flow Rate FiO2 10/29/16 08:34 Room Air 10/29/16 07:00 98.8 63 17 99/58 (72) 100 98.8 10/28/16 11:06 2.0 Weight Weight [ ] Input and Output Intake and Output Intake and Output 10/29/16 07:00 Intake Total 680 ml Output Total 2850 ml Balance -2170 ml Intake Oral 680 ml Output Urine Total 2850 ml Laboratory Labs Laboratory Tests Test 10/28/16 17:29 Troponin I Quantitative 0.671 ng/mL (0.000-0.055) Physical Exam HEENT: Neck Supple W Full Motion Chest: Symmetric LUNGS: Clear to Auscultation Heart: S1S2, RRR (SR no significant rhythm ectopies) Abdomen: Soft N/T Extremities: No Edema, No Calf Tenderness Neurology: alert, oriented, follow commands Other Exams right radial wrist arteriotomy site intact, no swelling, erythema, neurovascular status intact. Assessment Assessment 1. NSTEMI: Peaked trop at 0.67. S/P PTCA to distal ramus POD#1. Also with vasopasm element. Normal EF/LV function. 2. Hx of hypothyroidism: TSH 5.8. per PCP 3. 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 See report 4. Asymptomatic sinus bradycardia: lowest HR at 45 recorded while at rest. No pauses. Baseline HR vs reperfusion vagotonia. Presently HR 70s. Recommendations 1. ASA/Brilinta 2. Continue with lipitor. Low dose lisinopril and amlodipine. No BB, BP at low end. 3. Follow up in office in 4 weeks. 4. Encouraged home BP/HR monitoring. 5. Encouraged cardiac rehab JENELLE ABBOTT MD 10/29/16 1113: CARDIO Progress Notes Plan Plan Patient seen and examined. Agree with above nurse practitioner note. No acute events overnight. No new chest pain. Normal cardiac exam. Normal right radial artery pulse. Labs reviewed medications reviewed. Okay to discharge today. Follow-up in the office in 4-6 weeks. LON DUMONT APRN October 29, 2016 10:08 JENELLE ABBOTT MD October 29, 2016 11:13
[2016-10-29 11:00] VITALS: BP 123/75
[2016-10-29] MEDS ORDERED: ASPI81TA9 PO (12:38)
[2016-10-29] MEDS ORDERED: ALPR0.25 PO (12:38)
[2016-10-29] MEDS ORDERED: TICA90TA PO (12:38)
--- NOTE | 2016-10-29 16:30 | PDOC3 ---
Discharge Summary* Admitting Diagnosis Problems Medical Problems: (1) Chest pain Status: Acute (2) Elevated troponin Status: Acute Final Diagnosis 1. NSTEMI: ? Vasospasm 2. Hx of hypothyroidism: repeat TSH in few 6 weeks. 3. hx of congenital mild variant coronary anatomy. 4. Asymptomatic sinus bradycardia: 5. Dysphagia: intermittent 6.Anxiety 7. Depression Brief Hospital Course Ms. Holbrook is a 40 old female who presented with chest pain, had lef heart cardiac cath and angioplasty, (pl see cath report for full details). Her symptoms could be due to ? vasospasm., started her on Brilinta. Also evaluated by GI, recommend out pt EGD after stopping Brilinta. Today, she is asymptomatic , deemed stable to go home with follow up in 4 weeks. exam GENERAL: No apparent distress. Alert and oriented. HEENT: Head normocephalic, atraumatic. NECK: Supple LUNGS: Clear to auscultation. HEART: RRR, S1, S2 present, pulses intact ABDOMEN: Soft, positive bowel sounds. EXTREMITIES: No cyanosis or edema. CONDITION AT DISCHARGE: Improved, Stable Scheduled Aspirin (Aspirin Ec), 81 MG PO [id number] Bupropion Hcl (Wellbutrin Sr), 1 TAB PO BID, (Reported) Ticagrelor (Brilinta), 90 MG PO BID Topiramate (Topamax), 1 TAB PO QHS, (Reported) Scheduled PRN Alprazolam (Xanax), 1 TAB PO PRN QHS PRN for INSOMNIA Time Spent Total time spent with patient 35 minutes for coordination of care, counseling, and education. SHIVANI GREEN MD October 29, 2016 16:30
== END 2016-10-29 14:42 | disposition home or self-care (01) | DRG 251 ==
LOC: ER 22:19 → 2 NORTH 23:40
PROVIDERS: ADMIT Internal Medicine; ATTEND Internal Medicine
PROC: 4A023N7 Measurement of Cardiac Sampling and Pressure, Left Heart, Percutaneous Approach (ICD-10-PCS; principal; 2016-10-28)
PROC: 02703ZZ Dilation of Coronary Artery, One Artery, Percutaneous Approach (ICD-10-PCS; 2016-10-28)
PROC: B2111ZZ Fluoroscopy of Multiple Coronary Arteries using Low Osmolar Contrast (ICD-10-PCS; 2016-10-28)
DX: I21.4 Non-ST elevation (NSTEMI) myocardial infarction (principal); B19.20 Unspecified viral hepatitis C without hepatic coma; E03.9 Hypothyroidism, unspecified; F32.9 Major depressive disorder, single episode, unspecified; G43.909 Migraine, unspecified, not intractable, without status migrainosus; I73.9 Peripheral vascular disease, unspecified; K21.9 Gastro-esophageal reflux disease without esophagitis; K22.4 Dyskinesia of esophagus; K22.2 Esophageal obstruction; Z80.0 Family history of malignant neoplasm of digestive organs; Z82.3 Family history of stroke; Z82.49 Family history of ischemic heart disease and other diseases of the circulatory system; Z87.891 Personal history of nicotine dependence; Z98.61 Coronary angioplasty status; Z88.8 Allergy status to other drugs, medicaments and biological substances; R00.1 Bradycardia, unspecified
CPT/HCPCS: 36415; 71010; 80048; 80061; 80076; 82553; 83735; 83880; 84443; 84484; 85027; 85610; 92920; 93005; 93306; 93458; C1725; C1769; C1887; C1892; C9113; J2250; J3010; J3490; Q9967; 99285-25; J3246

== ENCOUNTER → 2016-11-01 | Outpatient (CLI) | payer OTHER ==
[2016-10-29 11:00] VITALS: BP 123/75
[~2016-11-01] MED LIST changes: +ASPI81TA9 PO; +TICA90TA PO
== END | disposition home or self-care (01) ==
LOC: LAB 15:11
PROVIDERS: ATTEND Family Medicine
DX: Z02.0 Encounter for examination for admission to educational institution (principal)
CPT/HCPCS: 36415; 86706

== ENCOUNTER → 2016-12-08 | Outpatient (CLI) | payer OTHER ==
[~2016-12-08] MED LIST changes: +ASPI-612 PO; -ASPI81TA9 PO; -TOPI25TA32 PO; +TOPI25TA52 PO
== END | disposition home or self-care (01) ==
LOC: LAB 12:33
PROVIDERS: ATTEND Family Medicine
DX: E03.9 Hypothyroidism, unspecified (principal)
CPT/HCPCS: 36415; 84443; 84481

== ENCOUNTER → 2017-04-01 | Outpatient (CLI) | payer OTHER ==
--- NOTE | 2017-04-01 13:22 | KCIC ---
EXAM: Left knee, 3 views. HISTORY: Pain. COMPARISON: None. FINDINGS: Frontal, lateral and oblique views of the left knee are obtained. There is no fracture, dislocation or subluxation. No effusion is seen. IMPRESSION: No acute osseous finding. Electronically signed by: Isa Morrissey MD (04/01/2017 1:19 PM) [facility]
== END | disposition home or self-care (01) ==
LOC: KCIC 12:01
PROVIDERS: ATTEND Nurse Practitioner Family
DX: M25.562 Pain in left knee (principal); W19.XXXD Unspecified fall, subsequent encounter
CPT/HCPCS: 73562

== ENCOUNTER → 2017-05-27 | Outpatient (CLI) | payer OTHER ==
[~2017-05-27] MED LIST changes: +ALPR0.5T PO; +AMLO2.5T PO; +CLOP75TA PO; +DEXL60CA2 PO; +LEVO25TA55 PO; +LIOT5TAB11 PO; +RANI300C PO; +ROSU5TAB11 PO
[2017-05-27 09:55] LABS: ALBUMIN/GLOBULIN RATIO 1.2 (1.0-1.7); CALCIUM 8.6 mg/dL (8.5-10.1); CREATININE 0.7 mg/dL (0.6-1.0); GFR 91.3; POTASSIUM 4.4 mmol/L (3.5-5.1); TOTAL BILIRUBIN 0.6 mg/dL (0.2-1.0); TOTAL PROTEIN 7.3 g/dL (6.4-8.2)
[2017-05-27 10:06] LABS: CHOLESTEROL/HDL RATIO 1.8
== END | disposition home or self-care (01) ==
LOC: LAB 08:50
PROVIDERS: ATTEND Family Medicine
DX: I21.21 ST elevation (STEMI) myocardial infarction involving left circumflex coronary artery (principal); I25.10 Atherosclerotic heart disease of native coronary artery without angina pectoris
CPT/HCPCS: 36415; 80053; 80061

== ENCOUNTER 2017-06-03 13:05 | Inpatient (IN) | payer OTHER ==
[~2017-06-03] VITALS: Ht 160 cm; Wt 66.3 kg
[~2017-06-03 13:05] MED LIST changes: -ALPR0.5T PO; -AMLO2.5T PO; -CLOP75TA PO; -DEXL60CA2 PO; -LEVO25TA55 PO; -LIOT5TAB11 PO; -RANI300C PO; -ROSU5TAB11 PO
[2017-06-03] MEDS ORDERED: IV NORMAL SALINE 1000ML BAG 1,000 ML IV SCH (13:22)
--- NOTE | 2017-06-03 13:29 | PHYS DOC ---
Past Medical History Past Medical History: GERD, Hypothyroid, Hepatitis, [place] Past Surgical History: Angioplasty Additional Past Surgical Histo: carpal tunnel right, uterine ablation Alcohol Use: Rarely Drug Use: None Social History Narrative: history of methamphetamine use, quit 2002 Adult General Chief Complaint Chief Complaint: CHEST PAIN HPI HPI Patient is a 41 year old female who presents with complaint of chest pain. Patient states that her symptoms started at approximately 11:00 AM today. Patient states that the symptoms came on suddenly. Patient described the pain is pressure-like in the middle of her chest. Patient states that the pain radiated towards her left shoulder and was associated with nausea. Patient has had no vomiting, shortness of breath, or fever associated with her symptoms. Patient has history coronary artery disease and underwent cardiac catheterization in October 2016 where she was found to have small vessel disease repaired with angioplasty but no deployment of stents. Patient had this procedure done with Dr. Alva. The patient states that currently her symptoms have improved but are still present, rating her pain as 2 out of 10. The patient states that she took 4 baby aspirin upon onset of symptoms at home. Review of Systems Review of Systems Constitutional: Denies fever or chills [] Eyes: Denies change in visual acuity, redness, or eye pain [] HENT: Denies nasal congestion or sore throat [] Respiratory: Denies cough or shortness of breath [] Cardiovascular: Chest pain[] GI: Nausea, denies abdominal pain, vomiting, bloody stools or diarrhea [] : Denies dysuria or hematuria [] Musculoskeletal: Denies back pain or joint pain [] Integument: Denies rash or skin lesions [] Neurologic: Denies headache, focal weakness or sensory changes [] All other systems were reviewed and found to be within normal limits, except as documented in this note. Current Medications Current Medications Current Medications Medications (Trade) Dose Ordered Sig/Lauren Start Time Stop Time Status Last Admin Dose Admin Sodium Chloride 1,000 ml @ 125 mls/hr Q8H 06/03/17 13:22 06/03/17 21:21 06/03/17 13:52 125 MLS/HR Allergies Allergies Allergies Coded Allergies Type Severity Reaction Last Updated Verified propoxyphene Allergy Intermediate Hives 02/25/14 Yes Physical Exam Physical Exam Constitutional: Alert, afebrile, appears in [id number] discomfort.[] HENT: Normocephalic, atraumatic, bilateral external ears normal, oropharynx moist, no oral exudates, nose normal. [] Eyes: PERRLA, EOMI, conjunctiva normal, no discharge. [] Neck: Normal range of motion, no tenderness, supple, no stridor. [] Cardiovascular:Heart rate regular rhythm, no murmur [] Lungs & Thorax: Bilateral breath sounds clear to auscultation [] Abdomen: Bowel sounds normal, soft, no tenderness, no masses, no pulsatile masses. [] Skin: Warm, dry, no erythema, no rash. [] Back: No tenderness, no CVA tenderness. [] Extremities: No tenderness, no cyanosis, no clubbing, ROM intact, no edema. [] Neurologic: Alert and oriented X 3, normal motor function, normal sensory function, no focal deficits noted. [] Current Patient Data Vital Signs Vital Signs Date Time Temp Pulse Resp B/P (MAP) Pulse Ox O2 Delivery O2 Flow Rate FiO2 06/03/17 14:13 62 13 111/63 (79) 100 Room Air 06/03/17 13:17 97.8 97.8 Lab Values Laboratory Tests Test 06/03/17 13:52 06/03/17 14:05 Urine Collection Type Unknown Urine Color Yellow Urine Clarity Clear Urine pH 7.0 Urine Specific [place] <=1.005 Urine Protein Negative mg/dL (NEG-TRACE) Urine Glucose (UA) Negative mg/dL (NEG) Urine Ketones (Stick) Negative mg/dL (NEG) Urine Blood Trace (NEG) Urine Nitrite Negative (NEG) Urine Bilirubin Negative (NEG) Urine Urobilinogen Dipstick 0.2 mg/dL (0.2 mg/dL) Urine Leukocyte Esterase Negative (NEG) Urine RBC 3-5 /HPF (0-2) Urine WBC 0 /HPF (0-4) Urine Squamous Epithelial Cells Few /LPF Urine Bacteria 0 /HPF (0-FEW) White Blood Count 4.9 x10^3/uL (4.0-11.0) Red Blood Count 4.02 x10^6/uL (3.50-5.40) Hemoglobin 12.7 g/dL (12.0-15.5) Hematocrit 38.7 % (36.0-47.0) Mean Corpuscular Volume 96 fL (79-100) Mean Corpuscular Hemoglobin 32 pg (25-35) Mean Corpuscular Hemoglobin Concent 33 g/dL (31-37) Red Cell Distribution Width 13.4 % (11.5-14.5) Platelet Count 185 x10^3/uL (140-400) Neutrophils (%) (Auto) 49 % (31-73) Lymphocytes (%) (Auto) 39 % (24-48) Monocytes (%) (Auto) 8 % (0-9) Eosinophils (%) (Auto) 2 % (0-3) Basophils (%) (Auto) 1 % (0-3) Neutrophils # (Auto) 2.4 x10^3uL (1.8-7.7) Lymphocytes # (Auto) 1.9 x10^3/uL (1.0-4.8) Monocytes # (Auto) 0.4 x10^3/uL (0.0-1.1) Eosinophils # (Auto) 0.1 x10^3/uL (0.0-0.7) Basophils # (Auto) 0.1 x10^3/uL (0.0-0.2) Sodium Level 143 mmol/L (136-145) Potassium Level 4.2 mmol/L (3.5-5.1) Chloride Level 106 mmol/L (98-107) Carbon Dioxide Level 30 mmol/L (21-32) Anion Gap 7 (6-14) Blood Urea Nitrogen 8 mg/dL (7-20) Creatinine 0.6 mg/dL (0.6-1.0) Estimated GFR (Cockcroft-Gault) 109.1 BUN/Creatinine Ratio 13 (6-20) Glucose Level 119 mg/dL (70-99) H Calcium Level 7.8 mg/dL (8.5-10.1) L Magnesium Level 2.0 mg/dL (1.8-2.4) Total Bilirubin 0.3 mg/dL (0.2-1.0) Aspartate Amino Transferase (AST) 21 U/L (15-37) Alanine Aminotransferase (ALT) 34 U/L (14-59) Alkaline Phosphatase 68 U/L (46-116) Creatine Kinase 396 U/L (26-192) H Creatine Kinase MB (Mass) 1.3 ng/mL (0.0-3.6) Creatine Kinase MB Relative Index 0.3 % (0-4) Troponin I Quantitative < 0.017 ng/mL (0.000-0.055) ES-Srx-G-Type Natriuretic Peptide 87 pg/mL (0-124) Total Protein 6.3 g/dL (6.4-8.2) L Albumin 3.4 g/dL (3.4-5.0) Albumin/Globulin Ratio 1.2 (1.0-1.7) Laboratory Tests 06/03/17 14:05 Laboratory Tests 06/03/17 14:05 EKG EKG Interpreted by me: Heart rate 59, sinus rhythm, normal intervals, normal axis, no acute ST/T-wave abnormalities present[] Radiology/Procedures Radiology/Procedures [facility] [address] [place], [place] [id number] IMAGING REPORT Signed PATIENT: GALDINO GALAVIZ ACCOUNT: [id number] : 1975 LOCATION: ER AGE: 41 SEX: F EXAM STATUS: PRE ER ORD. PHYSICIAN: ALLYSON SPAULDING MD REASON: chest pain PROCEDURE: PORTABLE CHEST 1V Indication: Left sided chest pain. Time of exam 1337 hours. Comparison is made with prior chest from 10/27/2016. FINDINGS: The heart size is normal. The lungs are clear. No pleural effusion or pneumothorax is identified. The pulmonary vascularity is normal. IMPRESSION: No acute abnormality detected. DICTATED and SIGNED BY: PETR TRUONG MD DATE: 06/03/17 1348 CC: ALLYSON SPAULDING MD; JACKELYN VÁZQUEZ MD ~ [] Course & Med Decision Making Course & Med Decision Making Pertinent Labs and Imaging studies reviewed. (See chart for details) HEART score is 4. Patient's initial troponin level was negative. Due to patient being placed in moderate risk category for acute cardiac event, the patient will be admitted the hospital for rule out of myocardial infarction. I spoke with Dr. Chandler who accepted care of patient in hospital. Dragon Disclaimer Dragon Disclaimer This electronic medical record was generated, in whole or in part, using a voice recognition dictation system. Departure Departure Impression: Primary Impression: Chest pain Additional Impression: History of coronary artery disease Disposition: ADMITTED INPATIENT Admitting Physician: Dalia Chandler Condition: STABLE Referrals: JACKELYN VÁZQUEZ MD (PCP) Problem Qualifiers Primary Impression: Chest pain Chest pain type: unspecified Qualified Codes: R07.9 - Chest pain, unspecified ALLYSON SPAULDING MD Jun 03, 2017 13:29
--- NOTE | 2017-06-03 13:36 | EKG ---
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
--- NOTE | 2017-06-03 13:49 | RAD ---
Indication: Left sided chest pain. Time of exam 1337 hours. Comparison is made with prior chest from 10/27/2016. FINDINGS: The heart size is normal. The lungs are clear. No pleural effusion or pneumothorax is identified. The pulmonary vascularity is normal. IMPRESSION: No acute abnormality detected.
[2017-06-03 14:02] LABS: BILIRUBIN,URINE NEGATIVE (NEG); GLUCOSE,URINE NEGATIVE (NEG); NITRITE,URINE NEGATIVE (NEG); PROTEIN,URINE NEGATIVE (NEG-TRACE); UROBILINOGEN,URINE 0.2 mg/dL (0.2 mg/dL)
[2017-06-03 14:15] LABS: WBC,URINE 0 /HPF (0-4)
[2017-06-03 14:16] LABS: BACTERIA,URINE 0 /HPF (0-FEW); SQUAMOUS EPITHELIAL CELL,UR FEW /LPF
[2017-06-03 14:21] LABS: BASO # 0.1 x10^3/uL (0.0-0.2); BASO % 1 % (0-3); EOS % 2 % (0-3); HEMATOCRIT 38.7 % (36.0-47.0); HEMOGLOBIN 12.7 g/dL (12.0-15.5); LYMPH # 1.9 x10^3/uL (1.0-4.8); LYMPH % 39 % (24-48); MEAN CORPUSCULAR HEMOGLOBIN 32 pg (25-35); MEAN CORPUSCULAR HGB CONC 33 g/dL (31-37); MEAN CORPUSCULAR VOLUME 96 fL (79-100); MONO % 8 % (0-9); NEUT % 49 % (31-73); PLATELET COUNT 185 x10^3/uL (140-400); RED BLOOD COUNT 4.02 x10^6/uL (3.50-5.40); RED CELL DISTRIBUTION WIDTH 13.4 % (11.5-14.5); WHITE BLOOD COUNT 4.9 x10^3/uL (4.0-11.0)
[2017-06-03 14:28] LABS: CALCIUM 7.8 mg/dL (8.5-10.1); CREATININE 0.6 mg/dL (0.6-1.0); GFR 109.1; POTASSIUM 4.2 mmol/L (3.5-5.1)
[2017-06-03 14:34] LABS: ALBUMIN 3.4 g/dL (3.4-5.0); ALBUMIN/GLOBULIN RATIO 1.2 (1.0-1.7); TOTAL BILIRUBIN 0.3 mg/dL (0.2-1.0); TOTAL PROTEIN 6.3 g/dL (6.4-8.2)
[2017-06-03 14:42] LABS: CKMB MASS 1.3 ng/mL (0.0-3.6)
[2017-06-03 15:00] VITALS: BP 104/60
[2017-06-03] MEDS ORDERED: fentaNYL PF VIAL 100 MCG/2 ML VIAL IV PRN (15:30)
[2017-06-03] MEDS ORDERED: ACETAMINOPHEN 325 MG TABLET. PO PRN (15:30)
[2017-06-03] MEDS ORDERED: ONDANSETRON PF 4 MG/2 ML VIAL. IV PRN (15:30)
[2017-06-03] MEDS ORDERED: RANI300C PO (15:44)
[2017-06-03] MEDS ORDERED: LIOT5TAB11 PO (15:44)
[2017-06-03] MEDS ORDERED: ALPR0.5T PO (15:44)
[2017-06-03] MEDS ORDERED: CLOP75TA PO (15:44)
[2017-06-03] MEDS ORDERED: DEXL60CA2 PO (15:44)
[2017-06-03] MEDS ORDERED: LEVO25TA55 PO (15:44)
[2017-06-03] MEDS: IV NORMAL SALINE 1000ML BAG 1,000 ML IV SCH (16:05)
[2017-06-03] MEDS ORDERED: ROSU5TAB11 PO (16:08)
[2017-06-03] MEDS ORDERED: AMLO2.5T PO (16:08)
[2017-06-03] MEDS ORDERED: amLODIPine BESYLATE 2.5 MG TABLET PO PRN (17:00)
[2017-06-03] MEDS ORDERED: ALPRAZolam 0.5 MG TABLET PO PRN (17:00)
[2017-06-03 19:00] VITALS: BP 98/57
[2017-06-03] MEDS ORDERED: FAMOTIDINE 20 MG TABLET. PO SCH (21:00)
[2017-06-03 22:58] VITALS: BP 92/54
--- NOTE | 2017-06-03 23:23 | HP ---
ADMIT DATE: 06/03/2017 CHIEF COMPLAINT: Chest pain. HISTORY OF PRESENT ILLNESS: The patient is a pleasant 41-year-old female who had a cardiac cath back in October of this year. During that procedures, they did an angioplasty of a distal lesion, but no stent was left. Once again, she presents with chest pain rated at 7/10. She has associated weakness, jaw pain and arm pain. It appears she probably have a new cardiac event. I have discussed the case with ER physician. We are going to admit the patient and consult Cardiology. PAST MEDICAL HISTORY: Coronary artery disease, coronary angioplasty without stenting. ALLERGIES: None. FAMILY HISTORY: Coronary artery disease. SOCIAL HISTORY: She does not drink or take drugs. She quit smoking 14 years ago. MEDICATIONS: Reviewed. REVIEW OF SYSTEMS: GENERAL: No history of weight change, weakness or fevers. SKIN: No bruising, hair changes or rashes. EYES: No blurred, double or loss of vision. NOSE AND THROAT: No history of nosebleeds, hoarseness or sore throat. CARDIAC: She complains of chest pain. LUNGS: Denies cough, hemoptysis, wheezing or shortness of breath. GASTROINTESTINAL: Denies changes in appetite, nausea, vomiting, diarrhea or constipation. GENITOURINARY: No history of frequency, urgency, hesitancy or nocturia. NEUROLOGIC: Denies history of numbness, tingling, tremor or weakness. PSYCHIATRIC: No history of panic, anxiety or depression. ENDOCRINE: No history of heat or cold intolerance, polyuria or polydipsia. EXTREMITIES: Denies muscle weakness, joint pain, pain on walking or stiffness. PHYSICAL EXAMINATION: VITAL SIGNS: Temperature afebrile, pulse 92, respirations 16, blood pressure 140/83. GENERAL: She is alert, cooperative. HEART: Normal S1, S2. LUNGS: Diminished, but clear. ABDOMEN: Soft, positive bowel sounds. EXTREMITIES: Trace edema. SKIN: No rashes. ENDOCRINE: No thyromegaly. LYMPHATICS: No cervical nodes. HEMATOPOIETIC: No bruising. LABORATORY DATA: Troponin is 0. EKG shows sinus rhythm. ASSESSMENT AND PLAN: Chest pain in a middle-aged female who has known coronary artery disease. The patient has been admitted to telemetry. Continue cardiac monitoring, serial enzymes, serial EKGs. Consult Cardiology. Suspect she will need a stress test, but will await cardiac input, daily aspirin. Continue home medicines. PROGNOSIS: Guarded. GIA TURCIOS DO DR: DEACON/roger JOB#: [id number] / [id number]
[2017-06-04] MEDS: IV NORMAL SALINE 1000ML BAG 1,000 ML IV SCH (01:28)
[2017-06-04 03:00] VITALS: BP 99/60
[2017-06-04 05:11] LABS: BASO # 0.1 x10^3/uL (0.0-0.2); BASO % 1 % (0-3); EOS % 4 % (0-3); LYMPH # 1.7 x10^3/uL (1.0-4.8); LYMPH % 40 % (24-48); MEAN CORPUSCULAR HEMOGLOBIN 32 pg (25-35); MEAN CORPUSCULAR HGB CONC 33 g/dL (31-37); MEAN CORPUSCULAR VOLUME 96 fL (79-100); MONO % 10 % (0-9); NEUT % 45 % (31-73); PLATELET COUNT 159 x10^3/uL (140-400); RED BLOOD COUNT 3.74 x10^6/uL (3.50-5.40); RED CELL DISTRIBUTION WIDTH 13.7 % (11.5-14.5); WHITE BLOOD COUNT 4.2 x10^3/uL (4.0-11.0)
[2017-06-04 05:30] LABS: CREATININE 0.6 mg/dL (0.6-1.0); GFR 109.1; POTASSIUM 4.8 mmol/L (3.5-5.1)
[2017-06-04] MEDS ORDERED: LEVOTHYROXINE 25 MCG TABLET. PO SCH (06:00)
[2017-06-04 07:00] VITALS: BP 107/60
[2017-06-04] MEDS ORDERED: PANTOPRAZOLE 40 MG TABLET.DR. PO SCH (07:30)
[2017-06-04] MEDS ORDERED: ASPIRIN ENTERIC COATED 81 MG TABLET.DR. PO SCH (08:00)
[2017-06-04] MEDS ORDERED: CLOPIDOGREL BISULFATE 75 MG TABLET PO SCH (09:00)
[2017-06-04] MEDS ORDERED: buPROPion XL 150 MG TAB.ER.24H. PO SCH (09:00)
[2017-06-04] MEDS ORDERED: LIOTHYRONINE 5 MCG TABLET. PO SCH (09:00)
--- NOTE | 2017-06-04 10:45 | PDOC ---
PROGRESS NOTES Chief Complaint Chief Complaint Chest pain CAD Hx of angioplasty October 2016 Elevated CK Hx of cigarette use History of Present Illness History of Present Illness Patient admitted for CP r/o. Her troponin were <0.017x3, and her CXR was clear. Cardio was consulted and awaiting their input. IVF for elevated CK. Await cardiac input and okay to d/c if approved by them. Vitals Vitals Vital Signs Date Time Temp Pulse Resp B/P (MAP) Pulse Ox O2 Delivery O2 Flow Rate FiO2 06/04/17 07:00 97.9 60 16 107/60 (76) 97 Room Air 97.9 Physical Exam General: Alert, Oriented X3, Cooperative Heart: Regular rate, No murmurs Lungs: Clear Abdomen: Soft, No tenderness Extremities: No clubbing, No cyanosis Skin: No rashes Labs LABS Laboratory Tests Test 06/03/17 13:52 06/03/17 14:05 06/03/17 22:00 06/04/17 04:30 Urine Collection Type Unknown Urine Color Yellow Urine Clarity Clear Urine pH 7.0 Urine Specific [place] <=1.005 Urine Protein Negative mg/dL (NEG-TRACE) Urine Glucose (UA) Negative mg/dL (NEG) Urine Ketones (Stick) Negative mg/dL (NEG) Urine Blood Trace (NEG) Urine Nitrite Negative (NEG) Urine Bilirubin Negative (NEG) Urine Urobilinogen Dipstick 0.2 mg/dL (0.2 mg/dL) Urine Leukocyte Esterase Negative (NEG) Urine RBC 3-5 /HPF (0-2) Urine WBC 0 /HPF (0-4) Urine Squamous Epithelial Cells Few /LPF Urine Bacteria 0 /HPF (0-FEW) White Blood Count 4.9 x10^3/uL (4.0-11.0) 4.2 x10^3/uL (4.0-11.0) Red Blood Count 4.02 x10^6/uL (3.50-5.40) 3.74 x10^6/uL (3.50-5.40) Hemoglobin 12.7 g/dL (12.0-15.5) 12.0 g/dL (12.0-15.5) Hematocrit 38.7 % (36.0-47.0) 36.0 % (36.0-47.0) Mean Corpuscular Volume 96 fL (79-100) 96 fL (79-100) Mean Corpuscular Hemoglobin 32 pg (25-35) 32 pg (25-35) Mean Corpuscular Hemoglobin Concent 33 g/dL (31-37) 33 g/dL (31-37) Red Cell Distribution Width 13.4 % (11.5-14.5) 13.7 % (11.5-14.5) Platelet Count 185 x10^3/uL (140-400) 159 x10^3/uL (140-400) Neutrophils (%) (Auto) 49 % (31-73) 45 % (31-73) Lymphocytes (%) (Auto) 39 % (24-48) 40 % (24-48) Monocytes (%) (Auto) 8 % (0-9) 10 % (0-9) Eosinophils (%) (Auto) 2 % (0-3) 4 % (0-3) Basophils (%) (Auto) 1 % (0-3) 1 % (0-3) Neutrophils # (Auto) 2.4 x10^3uL (1.8-7.7) 1.9 x10^3uL (1.8-7.7) Lymphocytes # (Auto) 1.9 x10^3/uL (1.0-4.8) 1.7 x10^3/uL (1.0-4.8) Monocytes # (Auto) 0.4 x10^3/uL (0.0-1.1) 0.4 x10^3/uL (0.0-1.1) Eosinophils # (Auto) 0.1 x10^3/uL (0.0-0.7) 0.1 x10^3/uL (0.0-0.7) Basophils # (Auto) 0.1 x10^3/uL (0.0-0.2) 0.1 x10^3/uL (0.0-0.2) Sodium Level 143 mmol/L (136-145) 144 mmol/L (136-145) Potassium Level 4.2 mmol/L (3.5-5.1) 4.8 mmol/L (3.5-5.1) Chloride Level 106 mmol/L (98-107) 109 mmol/L (98-107) Carbon Dioxide Level 30 mmol/L (21-32) 29 mmol/L (21-32) Anion Gap 7 (6-14) 6 (6-14) Blood Urea Nitrogen 8 mg/dL (7-20) 8 mg/dL (7-20) Creatinine 0.6 mg/dL (0.6-1.0) 0.6 mg/dL (0.6-1.0) Estimated GFR (Cockcroft-Gault) 109.1 109.1 BUN/Creatinine Ratio 13 (6-20) Glucose Level 119 mg/dL (70-99) 96 mg/dL (70-99) Calcium Level 7.8 mg/dL (8.5-10.1) 8.0 mg/dL (8.5-10.1) Magnesium Level 2.0 mg/dL (1.8-2.4) Total Bilirubin 0.3 mg/dL (0.2-1.0) Aspartate Amino Transf (AST/SGOT) 21 U/L (15-37) Alanine Aminotransferase (ALT/SGPT) 34 U/L (14-59) Alkaline Phosphatase 68 U/L (46-116) Creatine Kinase 396 U/L (26-192) Creatine Kinase MB (Mass) 1.3 ng/mL (0.0-3.6) Creatine Kinase MB Relative Index 0.3 % (0-4) Troponin I Quantitative < 0.017 ng/mL (0.000-0.055) < 0.017 ng/mL (0.000-0.055) < 0.017 ng/mL (0.000-0.055) XF-Lgg-P-Type Natriuretic Peptide 87 pg/mL (0-124) Total Protein 6.3 g/dL (6.4-8.2) Albumin 3.4 g/dL (3.4-5.0) Albumin/Globulin Ratio 1.2 (1.0-1.7) Review of Systems Review of Systems Patient denies CP Patient denies palpitations Patient denies SOB Assessment and Plan Assessmemt and Plan Problems Medical Problems: (1) History of coronary artery disease Status: Acute Assessment: Chest pain CAD Hx of angioplasty October 2016 Elevated CK Hx of cigarette use Plan: IVF Home meds PT/OT Recheck labs Await cardiac input Okay to d/c pending on cardiac input Problems: Comment Review of Relevant I have reviewed the following items jesus (where applicable) has been applied. Labs Laboratory Tests Test 06/03/17 13:52 06/03/17 14:05 06/03/17 22:00 06/04/17 04:30 Urine Collection Type Unknown Urine Color Yellow Urine Clarity Clear Urine pH 7.0 Urine Specific [place] <=1.005 Urine Protein Negative mg/dL (NEG-TRACE) Urine Glucose (UA) Negative mg/dL (NEG) Urine Ketones (Stick) Negative mg/dL (NEG) Urine Blood Trace (NEG) Urine Nitrite Negative (NEG) Urine Bilirubin Negative (NEG) Urine Urobilinogen Dipstick 0.2 mg/dL (0.2 mg/dL) Urine Leukocyte Esterase Negative (NEG) Urine RBC 3-5 /HPF (0-2) Urine WBC 0 /HPF (0-4) Urine Squamous Epithelial Cells Few /LPF Urine Bacteria 0 /HPF (0-FEW) White Blood Count 4.9 x10^3/uL (4.0-11.0) 4.2 x10^3/uL (4.0-11.0) Red Blood Count 4.02 x10^6/uL (3.50-5.40) 3.74 x10^6/uL (3.50-5.40) Hemoglobin 12.7 g/dL (12.0-15.5) 12.0 g/dL (12.0-15.5) Hematocrit 38.7 % (36.0-47.0) 36.0 % (36.0-47.0) Mean Corpuscular Volume 96 fL (79-100) 96 fL (79-100) Mean Corpuscular Hemoglobin 32 pg (25-35) 32 pg (25-35) Mean Corpuscular Hemoglobin Concent 33 g/dL (31-37) 33 g/dL (31-37) Red Cell Distribution Width 13.4 % (11.5-14.5) 13.7 % (11.5-14.5) Platelet Count 185 x10^3/uL (140-400) 159 x10^3/uL (140-400) Neutrophils (%) (Auto) 49 % (31-73) 45 % (31-73) Lymphocytes (%) (Auto) 39 % (24-48) 40 % (24-48) Monocytes (%) (Auto) 8 % (0-9) 10 % (0-9) Eosinophils (%) (Auto) 2 % (0-3) 4 % (0-3) Basophils (%) (Auto) 1 % (0-3) 1 % (0-3) Neutrophils # (Auto) 2.4 x10^3uL (1.8-7.7) 1.9 x10^3uL (1.8-7.7) Lymphocytes # (Auto) 1.9 x10^3/uL (1.0-4.8) 1.7 x10^3/uL (1.0-4.8) Monocytes # (Auto) 0.4 x10^3/uL (0.0-1.1) 0.4 x10^3/uL (0.0-1.1) Eosinophils # (Auto) 0.1 x10^3/uL (0.0-0.7) 0.1 x10^3/uL (0.0-0.7) Basophils # (Auto) 0.1 x10^3/uL (0.0-0.2) 0.1 x10^3/uL (0.0-0.2) Sodium Level 143 mmol/L (136-145) 144 mmol/L (136-145) Potassium Level 4.2 mmol/L (3.5-5.1) 4.8 mmol/L (3.5-5.1) Chloride Level 106 mmol/L (98-107) 109 mmol/L (98-107) Carbon Dioxide Level 30 mmol/L (21-32) 29 mmol/L (21-32) Anion Gap 7 (6-14) 6 (6-14) Blood Urea Nitrogen 8 mg/dL (7-20) 8 mg/dL (7-20) Creatinine 0.6 mg/dL (0.6-1.0) 0.6 mg/dL (0.6-1.0) Estimated GFR (Cockcroft-Gault) 109.1 109.1 BUN/Creatinine Ratio 13 (6-20) Glucose Level 119 mg/dL (70-99) 96 mg/dL (70-99) Calcium Level 7.8 mg/dL (8.5-10.1) 8.0 mg/dL (8.5-10.1) Magnesium Level 2.0 mg/dL (1.8-2.4) Total Bilirubin 0.3 mg/dL (0.2-1.0) Aspartate Amino Transf (AST/SGOT) 21 U/L (15-37) Alanine Aminotransferase (ALT/SGPT) 34 U/L (14-59) Alkaline Phosphatase 68 U/L (46-116) Creatine Kinase 396 U/L (26-192) Creatine Kinase MB (Mass) 1.3 ng/mL (0.0-3.6) Creatine Kinase MB Relative Index 0.3 % (0-4) Troponin I Quantitative < 0.017 ng/mL (0.000-0.055) < 0.017 ng/mL (0.000-0.055) < 0.017 ng/mL (0.000-0.055) XV-Weg-S-Type Natriuretic Peptide 87 pg/mL (0-124) Total Protein 6.3 g/dL (6.4-8.2) Albumin 3.4 g/dL (3.4-5.0) Albumin/Globulin Ratio 1.2 (1.0-1.7) Laboratory Tests Test 06/03/17 13:52 06/03/17 14:05 06/03/17 22:00 06/04/17 04:30 Urine Collection Type Unknown Urine Color Yellow Urine Clarity Clear Urine pH 7.0 Urine Specific [place] <=1.005 Urine Protein Negative mg/dL (NEG-TRACE) Urine Glucose (UA) Negative mg/dL (NEG) Urine Ketones (Stick) Negative mg/dL (NEG) Urine Blood Trace (NEG) Urine Nitrite Negative (NEG) Urine Bilirubin Negative (NEG) Urine Urobilinogen Dipstick 0.2 mg/dL (0.2 mg/dL) Urine Leukocyte Esterase Negative (NEG) Urine RBC 3-5 /HPF (0-2) Urine WBC 0 /HPF (0-4) Urine Squamous Epithelial Cells Few /LPF Urine Bacteria 0 /HPF (0-FEW) White Blood Count 4.9 x10^3/uL (4.0-11.0) 4.2 x10^3/uL (4.0-11.0) Red Blood Count 4.02 x10^6/uL (3.50-5.40) 3.74 x10^6/uL (3.50-5.40) Hemoglobin 12.7 g/dL (12.0-15.5) 12.0 g/dL (12.0-15.5) Hematocrit 38.7 % (36.0-47.0) 36.0 % (36.0-47.0) Mean Corpuscular Volume 96 fL (79-100) 96 fL (79-100) Mean Corpuscular Hemoglobin 32 pg (25-35) 32 pg (25-35) Mean Corpuscular Hemoglobin Concent 33 g/dL (31-37) 33 g/dL (31-37) Red Cell Distribution Width 13.4 % (11.5-14.5) 13.7 % (11.5-14.5) Platelet Count 185 x10^3/uL (140-400) 159 x10^3/uL (140-400) Neutrophils (%) (Auto) 49 % (31-73) 45 % (31-73) Lymphocytes (%) (Auto) 39 % (24-48) 40 % (24-48) Monocytes (%) (Auto) 8 % (0-9) 10 % (0-9) Eosinophils (%) (Auto) 2 % (0-3) 4 % (0-3) Basophils (%) (Auto) 1 % (0-3) 1 % (0-3) Neutrophils # (Auto) 2.4 x10^3uL (1.8-7.7) 1.9 x10^3uL (1.8-7.7) Lymphocytes # (Auto) 1.9 x10^3/uL (1.0-4.8) 1.7 x10^3/uL (1.0-4.8) Monocytes # (Auto) 0.4 x10^3/uL (0.0-1.1) 0.4 x10^3/uL (0.0-1.1) Eosinophils # (Auto) 0.1 x10^3/uL (0.0-0.7) 0.1 x10^3/uL (0.0-0.7) Basophils # (Auto) 0.1 x10^3/uL (0.0-0.2) 0.1 x10^3/uL (0.0-0.2) Sodium Level 143 mmol/L (136-145) 144 mmol/L (136-145) Potassium Level 4.2 mmol/L (3.5-5.1) 4.8 mmol/L (3.5-5.1) Chloride Level 106 mmol/L (98-107) 109 mmol/L (98-107) Carbon Dioxide Level 30 mmol/L (21-32) 29 mmol/L (21-32) Anion Gap 7 (6-14) 6 (6-14) Blood Urea Nitrogen 8 mg/dL (7-20) 8 mg/dL (7-20) Creatinine 0.6 mg/dL (0.6-1.0) 0.6 mg/dL (0.6-1.0) Estimated GFR (Cockcroft-Gault) 109.1 109.1 BUN/Creatinine Ratio 13 (6-20) Glucose Level 119 mg/dL (70-99) 96 mg/dL (70-99) Calcium Level 7.8 mg/dL (8.5-10.1) 8.0 mg/dL (8.5-10.1) Magnesium Level 2.0 mg/dL (1.8-2.4) Total Bilirubin 0.3 mg/dL (0.2-1.0) Aspartate Amino Transf (AST/SGOT) 21 U/L (15-37) Alanine Aminotransferase (ALT/SGPT) 34 U/L (14-59) Alkaline Phosphatase 68 U/L (46-116) Creatine Kinase 396 U/L (26-192) Creatine Kinase MB (Mass) 1.3 ng/mL (0.0-3.6) Creatine Kinase MB Relative Index 0.3 % (0-4) Troponin I Quantitative < 0.017 ng/mL (0.000-0.055) < 0.017 ng/mL (0.000-0.055) < 0.017 ng/mL (0.000-0.055) UL-Wyt-E-Type Natriuretic Peptide 87 pg/mL (0-124) Total Protein 6.3 g/dL (6.4-8.2) Albumin 3.4 g/dL (3.4-5.0) Albumin/Globulin Ratio 1.2 (1.0-1.7) Medications Current Medications Sodium Chloride 1,000 ml @ 125 mls/hr Q8H IV Last administered on 06/03/17 13:52; Start 06/03/17 at 13:22; Stop 06/03/17 at 21:21; Status DC Ondansetron HCl (Zofran) 4 mg PRN Q8HRS PRN IV NAUSEA/VOMITING; Start at 15:30; Stop 06/04/17 at 15:29 Fentanyl Citrate (Fentanyl 2ml Vial) 50 mcg PRN Q2HR PRN IV PAIN; Start at 15:30; Stop 06/04/17 at 15:29 Sodium Chloride 1,000 ml @ 100 mls/hr Q10H IV Last administered on 06/04/17 01:28; Start 06/03/17 at 15:28; Stop 06/04/17 at 15:27 Acetaminophen (Tylenol) 650 mg PRN Q4HRS PRN PO FEVER Last administered on 08:36; Start 06/03/17 at 15:30; Stop 06/04/17 at 15:29 Alprazolam (Xanax) 0.5 mg PRN QHS PRN PO ANXIETY / AGITATION Last administered on 06/03/17 21:30; Start 06/03/17 at 17:00 Amlodipine Besylate (Norvasc) 2.5 mg PRN DAILY PRN PO SBP>100; Start 06/03/17 at 17:00 Aspirin (Ecotrin) 81 mg DAILYWBKFT PO ; Start 06/04/17 at 08:00 Bupropion HCl (Wellbutrin Xl) 150 mg DAILY PO ; Start 06/04/17 at 09:00 Clopidogrel Bisulfate (Plavix) 75 mg DAILY PO ; Start 06/04/17 at 09:00 Levothyroxine Sodium (Synthroid) 25 mcg DAILY06 PO Last administered on 06:54; Start 06/04/17 at 06:00 Liothyronine Sodium (Cytomel) 10 mcg DAILY PO Last administered on 06/04/17 08:35; Start 06/04/17 at 09:00 Pantoprazole Sodium (Protonix) 40 mg DAILYAC PO ; Start 06/04/17 at 07:30 Famotidine (Pepcid) 40 mg QHS PO Last administered on 06/03/17 21:29; Start 06/03/17 at 21:00 Atorvastatin Calcium (Lipitor) 20 mg TuTh PO ; Start 06/07/17 at 21:00 Active Scripts Active Aspirin Ec (Aspirin) 81 Mg Tablet. 81 Mg PO [id number] 30 Days Reported Rosuvastatin Calcium 5 Mg Tablet 5 Mg PO TWICE WEEKLY Twice weekly at HS on Tuesday and nights Amlodipine Besylate 2.5 Mg Tablet 2.5 Mg PO PRN DAILY PRN For SBP > 100 Xanax (Alprazolam) 0.5 Mg Tablet 0.5 Mg PO HS PRN Cytomel (Liothyronine Sodium) 5 Mcg Tablet 10 Mcg PO DAILY Ranitidine Hcl 300 Mg Capsule 300 Mg PO HS Dexilant (Dexlansoprazole) 60 Mg Burton. 60 Mg PO DAILY Clopidogrel (Clopidogrel Bisulfate) 75 Mg Tablet 75 Mg PO DAILY Synthroid (Levothyroxine Sodium) 25 Mcg Tablet 25 Mcg PO DAILY Wellbutrin Sr (Bupropion Hcl) 150 Mg Tablet.er 1 Tab PO DAILY Vitals/I & O Vital Sign - Last 24 Hours 06/03/17 06/03/17 06/03/17 06/03/17 13:12 13:17 13:43 14:13 Temp 97.8 97.8 Pulse 78 69 60 62 Resp 16 18 17 13 B/P (MAP) 141/72 (95) 141/72 (95) 116/64 (81) 111/63 (79) Pulse Ox 99 100 100 100 O2 Delivery Room Air Room Air Room Air Room Air 06/03/17 06/03/17 06/03/17 06/03/17 15:00 16:44 19:00 22:58 Temp 97.7 98.3 98.6 97.7 98.3 98.6 Pulse 74 70 72 Resp 19 18 18 B/P (MAP) 104/60 (75) 98/57 (71) 92/54 (67) Pulse Ox 98 97 98 O2 Delivery Room Air Room Air Room Air Room Air 06/04/17 06/04/17 03:00 07:00 Temp 98.1 97.9 98.1 97.9 Pulse 65 60 Resp 18 16 B/P (MAP) 99/60 (73) 107/60 (76) Pulse Ox 99 97 O2 Delivery Room Air Room Air Intake and Output 06/03/17 06/03/17 06/04/17 15:00 23:00 07:00 Intake Total 120 ml 240 ml Balance 120 ml 240 ml GIA TURCIOS III DO Jun 04, 2017 10:45
[2017-06-04 11:00] VITALS: BP 107/54
--- NOTE | 2017-06-04 12:57 | PDOC2 ---
CONSULT Date of Consult Date of Consult DATE: 06/04/17 TIME: 12:57 Reason for Consult Reason for Consult: Chest pain Referring Physician Referring Physician: Dr. Chandler Identification/Chief Complaint Chief Complaint Chest pain Problems: Source Source: Chart review, Patient History of Present Illness Reason for Visit: 41-year-old female with history of coronary artery disease s/p PTCA to ramus intermedius artery in October 2016 without any stent placement, presented with intermittent episodes of right-sided chest pain that she stated was at 2/10 severity not related to exertion or food intake. She denied any orthopnea/PND, palpitations or syncope. Past Medical History Cardiovascular: No pertinent hx Pulmonary: No pertinent hx CENTRAL NERVOUS SYSTEM: Migraine, Other GI: GERD Heme/Onc: No pertinent hx Hepatobiliary: Hep A/B/C Psych: Anxiety, Depression Musculoskeletal: Other Rheumatologic: No pertinent hx Infectious disease: Other Renal/: No pertinent hx Endocrine: Hypothyroidism Past Surgical History Past Surgical History: Other Family History Family History: Coronary Artery Disease, High Cholestrol, Hypertension, Other Social History Quit ALCOHOL: occassional Drugs: Other Lives: with Family Current Problem List Problem List Problems Medical Problems: (1) History of coronary artery disease Status: Acute Current Medications Current Medications Current Medications Sodium Chloride 1,000 ml @ 125 mls/hr Q8H IV Last administered on 06/03/17 13:52; Start 06/03/17 at 13:22; Stop 06/03/17 at 21:21; Status DC Ondansetron HCl (Zofran) 4 mg PRN Q8HRS PRN IV NAUSEA/VOMITING; Start at 15:30; Stop 06/04/17 at 15:29 Fentanyl Citrate (Fentanyl 2ml Vial) 50 mcg PRN Q2HR PRN IV PAIN; Start at 15:30; Stop 06/04/17 at 15:29 Sodium Chloride 1,000 ml @ 100 mls/hr Q10H IV Last administered on 06/04/17 01:28; Start 06/03/17 at 15:28; Stop 06/04/17 at 15:27 Acetaminophen (Tylenol) 650 mg PRN Q4HRS PRN PO FEVER Last administered on 08:36; Start 06/03/17 at 15:30; Stop 06/04/17 at 15:29 Alprazolam (Xanax) 0.5 mg PRN QHS PRN PO ANXIETY / AGITATION Last administered on 06/03/17 21:30; Start 06/03/17 at 17:00 Amlodipine Besylate (Norvasc) 2.5 mg PRN DAILY PRN PO SBP>100; Start 06/03/17 at 17:00 Aspirin (Ecotrin) 81 mg DAILYWBKFT PO ; Start 06/04/17 at 08:00 Bupropion HCl (Wellbutrin Xl) 150 mg DAILY PO ; Start 06/04/17 at 09:00 Clopidogrel Bisulfate (Plavix) 75 mg DAILY PO ; Start 06/04/17 at 09:00 Levothyroxine Sodium (Synthroid) 25 mcg DAILY06 PO Last administered on 06:54; Start 06/04/17 at 06:00 Liothyronine Sodium (Cytomel) 10 mcg DAILY PO Last administered on 06/04/17 08:35; Start 06/04/17 at 09:00 Pantoprazole Sodium (Protonix) 40 mg DAILYAC PO ; Start 06/04/17 at 07:30 Famotidine (Pepcid) 40 mg QHS PO Last administered on 06/03/17 21:29; Start 06/03/17 at 21:00 Atorvastatin Calcium (Lipitor) 20 mg TuTh PO ; Start 06/07/17 at 21:00 Active Scripts Active Aspirin Ec (Aspirin) 81 Mg Tablet. 81 Mg PO DAILYWBKFT 30 Days Reported Rosuvastatin Calcium 5 Mg Tablet 5 Mg PO TWICE WEEKLY Twice weekly at HS on Tuesday and nights Amlodipine Besylate 2.5 Mg Tablet 2.5 Mg PO PRN DAILY PRN For SBP > 100 Xanax (Alprazolam) 0.5 Mg Tablet 0.5 Mg PO HS PRN Cytomel (Liothyronine Sodium) 5 Mcg Tablet 10 Mcg PO DAILY Ranitidine Hcl 300 Mg Capsule 300 Mg PO HS Dexilant (Dexlansoprazole) 60 Mg 60 Mg PO DAILY Clopidogrel (Clopidogrel Bisulfate) 75 Mg Tablet 75 Mg PO DAILY Synthroid (Levothyroxine Sodium) 25 Mcg Tablet 25 Mcg PO DAILY Wellbutrin Sr (Bupropion Hcl) 150 Mg Tablet.er 1 Tab PO DAILY Allergies Allergies: Coded Allergies: propoxyphene (Verified Allergy, Intermediate, Hives, 02/25/14) ROS PSYCHOLOGICAL ROS: No: Hallucinations Eyes: No Loss of vision HEENT: No: Epistaxis ENDOCRINE: No: Palpitations Respiratory: No: Orthopnea Cardiovascular: yes Chest Pain Gastrointestinal: No Vomiting, No Diarrhea Genitourinary: No Hematuria Neurological: No Seizures Skin: No Rash Physical Exam General: Alert, Oriented X3 HEENT: Atraumatic, PERRLA Lungs: Clear to auscultation Heart: Regular rate Abdomen: Soft, No tenderness Extremities: No edema Psych/Mental Status: Mood NL Vitals VITALS Vital Signs Date Time Temp Pulse Resp B/P (MAP) Pulse Ox O2 Delivery O2 Flow Rate FiO2 06/04/17 11:00 97.7 51 16 107/54 (71) 99 Room Air 97.7 Labs Labs Laboratory Tests Test 06/03/17 13:52 06/03/17 14:05 06/03/17 22:00 06/04/17 04:30 Urine Collection Type Unknown Urine Color Yellow Urine Clarity Clear Urine pH 7.0 Urine Specific [place] <=1.005 Urine Protein Negative mg/dL (NEG-TRACE) Urine Glucose (UA) Negative mg/dL (NEG) Urine Ketones (Stick) Negative mg/dL (NEG) Urine Blood Trace (NEG) Urine Nitrite Negative (NEG) Urine Bilirubin Negative (NEG) Urine Urobilinogen Dipstick 0.2 mg/dL (0.2 mg/dL) Urine Leukocyte Esterase Negative (NEG) Urine RBC 3-5 /HPF (0-2) Urine WBC 0 /HPF (0-4) Urine Squamous Epithelial Cells Few /LPF Urine Bacteria 0 /HPF (0-FEW) White Blood Count 4.9 x10^3/uL (4.0-11.0) 4.2 x10^3/uL (4.0-11.0) Red Blood Count 4.02 x10^6/uL (3.50-5.40) 3.74 x10^6/uL (3.50-5.40) Hemoglobin 12.7 g/dL (12.0-15.5) 12.0 g/dL (12.0-15.5) Hematocrit 38.7 % (36.0-47.0) 36.0 % (36.0-47.0) Mean Corpuscular Volume 96 fL (79-100) 96 fL (79-100) Mean Corpuscular Hemoglobin 32 pg (25-35) 32 pg (25-35) Mean Corpuscular Hemoglobin Concent 33 g/dL (31-37) 33 g/dL (31-37) Red Cell Distribution Width 13.4 % (11.5-14.5) 13.7 % (11.5-14.5) Platelet Count 185 x10^3/uL (140-400) 159 x10^3/uL (140-400) Neutrophils (%) (Auto) 49 % (31-73) 45 % (31-73) Lymphocytes (%) (Auto) 39 % (24-48) 40 % (24-48) Monocytes (%) (Auto) 8 % (0-9) 10 % (0-9) Eosinophils (%) (Auto) 2 % (0-3) 4 % (0-3) Basophils (%) (Auto) 1 % (0-3) 1 % (0-3) Neutrophils # (Auto) 2.4 x10^3uL (1.8-7.7) 1.9 x10^3uL (1.8-7.7) Lymphocytes # (Auto) 1.9 x10^3/uL (1.0-4.8) 1.7 x10^3/uL (1.0-4.8) Monocytes # (Auto) 0.4 x10^3/uL (0.0-1.1) 0.4 x10^3/uL (0.0-1.1) Eosinophils # (Auto) 0.1 x10^3/uL (0.0-0.7) 0.1 x10^3/uL (0.0-0.7) Basophils # (Auto) 0.1 x10^3/uL (0.0-0.2) 0.1 x10^3/uL (0.0-0.2) Sodium Level 143 mmol/L (136-145) 144 mmol/L (136-145) Potassium Level 4.2 mmol/L (3.5-5.1) 4.8 mmol/L (3.5-5.1) Chloride Level 106 mmol/L (98-107) 109 mmol/L (98-107) Carbon Dioxide Level 30 mmol/L (21-32) 29 mmol/L (21-32) Anion Gap 7 (6-14) 6 (6-14) Blood Urea Nitrogen 8 mg/dL (7-20) 8 mg/dL (7-20) Creatinine 0.6 mg/dL (0.6-1.0) 0.6 mg/dL (0.6-1.0) Estimated GFR (Cockcroft-Gault) 109.1 109.1 BUN/Creatinine Ratio 13 (6-20) Glucose Level 119 mg/dL (70-99) 96 mg/dL (70-99) Calcium Level 7.8 mg/dL (8.5-10.1) 8.0 mg/dL (8.5-10.1) Magnesium Level 2.0 mg/dL (1.8-2.4) Total Bilirubin 0.3 mg/dL (0.2-1.0) Aspartate Amino Transf (AST/SGOT) 21 U/L (15-37) Alanine Aminotransferase (ALT/SGPT) 34 U/L (14-59) Alkaline Phosphatase 68 U/L (46-116) Creatine Kinase 396 U/L (26-192) Creatine Kinase MB (Mass) 1.3 ng/mL (0.0-3.6) Creatine Kinase MB Relative Index 0.3 % (0-4) Troponin I Quantitative < 0.017 ng/mL (0.000-0.055) < 0.017 ng/mL (0.000-0.055) < 0.017 ng/mL (0.000-0.055) ET-Dvx-L-Type Natriuretic Peptide 87 pg/mL (0-124) Total Protein 6.3 g/dL (6.4-8.2) Albumin 3.4 g/dL (3.4-5.0) Albumin/Globulin Ratio 1.2 (1.0-1.7) Laboratory Tests Test 06/03/17 13:52 06/03/17 14:05 06/03/17 22:00 06/04/17 04:30 Urine Collection Type Unknown Urine Color Yellow Urine Clarity Clear Urine pH 7.0 Urine Specific [place] <=1.005 Urine Protein Negative mg/dL (NEG-TRACE) Urine Glucose (UA) Negative mg/dL (NEG) Urine Ketones (Stick) Negative mg/dL (NEG) Urine Blood Trace (NEG) Urine Nitrite Negative (NEG) Urine Bilirubin Negative (NEG) Urine Urobilinogen Dipstick 0.2 mg/dL (0.2 mg/dL) Urine Leukocyte Esterase Negative (NEG) Urine RBC 3-5 /HPF (0-2) Urine WBC 0 /HPF (0-4) Urine Squamous Epithelial Cells Few /LPF Urine Bacteria 0 /HPF (0-FEW) White Blood Count 4.9 x10^3/uL (4.0-11.0) 4.2 x10^3/uL (4.0-11.0) Red Blood Count 4.02 x10^6/uL (3.50-5.40) 3.74 x10^6/uL (3.50-5.40) Hemoglobin 12.7 g/dL (12.0-15.5) 12.0 g/dL (12.0-15.5) Hematocrit 38.7 % (36.0-47.0) 36.0 % (36.0-47.0) Mean Corpuscular Volume 96 fL (79-100) 96 fL (79-100) Mean Corpuscular Hemoglobin 32 pg (25-35) 32 pg (25-35) Mean Corpuscular Hemoglobin Concent 33 g/dL (31-37) 33 g/dL (31-37) Red Cell Distribution Width 13.4 % (11.5-14.5) 13.7 % (11.5-14.5) Platelet Count 185 x10^3/uL (140-400) 159 x10^3/uL (140-400) Neutrophils (%) (Auto) 49 % (31-73) 45 % (31-73) Lymphocytes (%) (Auto) 39 % (24-48) 40 % (24-48) Monocytes (%) (Auto) 8 % (0-9) 10 % (0-9) Eosinophils (%) (Auto) 2 % (0-3) 4 % (0-3) Basophils (%) (Auto) 1 % (0-3) 1 % (0-3) Neutrophils # (Auto) 2.4 x10^3uL (1.8-7.7) 1.9 x10^3uL (1.8-7.7) Lymphocytes # (Auto) 1.9 x10^3/uL (1.0-4.8) 1.7 x10^3/uL (1.0-4.8) Monocytes # (Auto) 0.4 x10^3/uL (0.0-1.1) 0.4 x10^3/uL (0.0-1.1) Eosinophils # (Auto) 0.1 x10^3/uL (0.0-0.7) 0.1 x10^3/uL (0.0-0.7) Basophils # (Auto) 0.1 x10^3/uL (0.0-0.2) 0.1 x10^3/uL (0.0-0.2) Sodium Level 143 mmol/L (136-145) 144 mmol/L (136-145) Potassium Level 4.2 mmol/L (3.5-5.1) 4.8 mmol/L (3.5-5.1) Chloride Level 106 mmol/L (98-107) 109 mmol/L (98-107) Carbon Dioxide Level 30 mmol/L (21-32) 29 mmol/L (21-32) Anion Gap 7 (6-14) 6 (6-14) Blood Urea Nitrogen 8 mg/dL (7-20) 8 mg/dL (7-20) Creatinine 0.6 mg/dL (0.6-1.0) 0.6 mg/dL (0.6-1.0) Estimated GFR (Cockcroft-Gault) 109.1 109.1 BUN/Creatinine Ratio 13 (6-20) Glucose Level 119 mg/dL (70-99) 96 mg/dL (70-99) Calcium Level 7.8 mg/dL (8.5-10.1) 8.0 mg/dL (8.5-10.1) Magnesium Level 2.0 mg/dL (1.8-2.4) Total Bilirubin 0.3 mg/dL (0.2-1.0) Aspartate Amino Transf (AST/SGOT) 21 U/L (15-37) Alanine Aminotransferase (ALT/SGPT) 34 U/L (14-59) Alkaline Phosphatase 68 U/L (46-116) Creatine Kinase 396 U/L (26-192) Creatine Kinase MB (Mass) 1.3 ng/mL (0.0-3.6) Creatine Kinase MB Relative Index 0.3 % (0-4) Troponin I Quantitative < 0.017 ng/mL (0.000-0.055) < 0.017 ng/mL (0.000-0.055) < 0.017 ng/mL (0.000-0.055) GI-Qle-H-Type Natriuretic Peptide 87 pg/mL (0-124) Total Protein 6.3 g/dL (6.4-8.2) Albumin 3.4 g/dL (3.4-5.0) Albumin/Globulin Ratio 1.2 (1.0-1.7) Assessment/Plan Assessment/Plan 1. Chest pain with atypical features, most probably musculoskeletal. Myocardial infarction be ruled out. Patient has history of coronary artery disease and had undergone PTCA to distal ramus intermedius without any stent placement in October 2016. LVEF was 50-55% at that time. No further cardiac workup is indicated at this time. Continue current secondary prevention measures. 2. Hypertension: Controlled 3. Hypothyroidism: On levo thyroxine 4. Hyperlipidemia: Continue statin therapy Thank you for your consultation CANDY DE LOS SANTOS MD Jun 04, 2017 12:57
[2017-06-07] MEDS ORDERED: ATORVASTATIN CALCIUM 20 MG TABLET PO SCH (21:00)
== END 2017-06-04 13:00 | disposition home or self-care (01) | DRG 313 ==
LOC: ER 13:05 → 5 NORTH 14:40
PROVIDERS: ADMIT Internal Medicine; ATTEND Internal Medicine
DX: R07.89 Other chest pain (principal); I25.10 Atherosclerotic heart disease of native coronary artery without angina pectoris; E03.9 Hypothyroidism, unspecified; E78.5 Hyperlipidemia, unspecified; I10 Essential (primary) hypertension; K21.9 Gastro-esophageal reflux disease without esophagitis; G43.909 Migraine, unspecified, not intractable, without status migrainosus; F41.9 Anxiety disorder, unspecified; F32.9 Major depressive disorder, single episode, unspecified; Z98.61 Coronary angioplasty status; Z87.891 Personal history of nicotine dependence; Z88.8 Allergy status to other drugs, medicaments and biological substances; Z82.49 Family history of ischemic heart disease and other diseases of the circulatory system
CPT/HCPCS: 36415; 71010; 80048; 80053; 81001; 82553; 83735; 83880; 84484; 85025; 93005; J7030; 99285-25

== ENCOUNTER → 2017-06-23 | Day surgery (SDC) | payer OTHER ==
[~2017-06-23] MED LIST changes: -ALPR0.25 PO; -ASPI-612 PO; -BUPR150T8 PO; -DICL75TA PO; +HYDROmorphone 2 MG/ML VIAL IV; +IV RINGERS,LACTATED 1000ML 1,000 ML IV; +LIDOCAINE 1% PF 2 ML VIAL. ID; -LORA10TA68 PO; +MORPHINE SULFATE 2 MG/ML DISP.SYRIN. IV; +ONDANSETRON PF 4 MG/2 ML VIAL. IV; -PANT40TA3 PO; +PROCHLORPERAZINE 10 MG/2 ML VIAL. IV; +PROPOFOL 20 ML IV; -TICA90TA PO; -TOPI25TA52 PO; +fentaNYL PF VIAL 100 MCG/2 ML VIAL IV
[2017-06-23 09:59] LABS: NEG OBC UR NEG; POS OBC UR POS; U PREG PATIENT NEGATIVE (NEG)
== END | disposition home or self-care (01) ==
LOC: ENDOS 07:57
DX: K21.0 Gastro-esophageal reflux disease with esophagitis (principal); K31.89 Other diseases of stomach and duodenum; K29.50 Unspecified chronic gastritis without bleeding; R13.10 Dysphagia, unspecified; Z95.1 Presence of aortocoronary bypass graft; Z87.891 Personal history of nicotine dependence; Z98.890 Other specified postprocedural states; M19.90 Unspecified osteoarthritis, unspecified site; Z79.82 Long term (current) use of aspirin; F32.9 Major depressive disorder, single episode, unspecified; Z80.0 Family history of malignant neoplasm of digestive organs; Z72.89 Other problems related to lifestyle; Z79.899 Other long term (current) drug therapy
CPT/HCPCS: 43239; 81025; 88305; 88342; J2704

== ENCOUNTER → 2017-07-20 | Outpatient (CLI) | payer OTHER ==
[2017-07-20] MEDS: SINCALIDE 1.2 MCG in IV NORMAL SALINE 50ML 30 ML IV (09:47)
== END | disposition home or self-care (01) ==
LOC: US 07:10
DX: R07.89 Other chest pain (principal); R11.0 Nausea; R14.0 Abdominal distension (gaseous); Z87.891 Personal history of nicotine dependence
CPT/HCPCS: 76700; 78226; 96374; 96375; A9537; J2805

== ENCOUNTER → 2017-08-01 | Outpatient (CLI) | payer OTHER ==
[2017-08-01 12:09] LABS: ADD MAN DIFF? NO
[2017-08-01 12:15] LABS: BASO # 0.1 x10^3/uL (0.0-0.2); BASO % 1 % (0-3); EOS # 0.1 x10^3/uL (0.0-0.7); EOS % 2 % (0-3); HEMATOCRIT 41.8 % (36.0-47.0); HEMOGLOBIN 14.2 g/dL (12.0-15.5); LYMPH % 32 % (24-48); MEAN CORPUSCULAR HEMOGLOBIN 32 pg (25-35); MEAN CORPUSCULAR HGB CONC 34 g/dL (31-37); MEAN CORPUSCULAR VOLUME 95 fL (79-100); MONO # 0.4 x10^3/uL (0.0-1.1); MONO % 6 % (0-9); NEUT # 3.8 x10^3uL (1.8-7.7); NEUT % 59 % (31-73); PLATELET COUNT 219 x10^3/uL (140-400); RED CELL DISTRIBUTION WIDTH 13.2 % (11.5-14.5); WHITE BLOOD COUNT 6.4 x10^3/uL (4.0-11.0)
[2017-08-01 12:39] LABS: ALBUMIN 3.7 g/dL (3.4-5.0); ALBUMIN/GLOBULIN RATIO 1.1 (1.0-1.7); ALK PHOS 73 U/L (46-116); ALT (SGPT) 20 U/L (14-59); ANION GAP 8 (6-14); AST (SGOT) 13 U/L (15-37); BLOOD UREA NITROGEN 11 mg/dL (7-20); BUN/CREATININE RATIO 16 (6-20); CALCIUM 8.9 mg/dL (8.5-10.1); CARBON DIOXIDE 29 mmol/L (21-32); CHLORIDE 102 mmol/L (98-107); CREATININE 0.7 mg/dL (0.6-1.0); GFR 91.3; GLUCOSE 97 mg/dL (70-99); MAGNESIUM 2.1 mg/dL (1.8-2.4); POTASSIUM 3.9 mmol/L (3.5-5.1); SODIUM 139 mmol/L (136-145); TOTAL BILIRUBIN 0.3 mg/dL (0.2-1.0); TOTAL PROTEIN 7.2 g/dL (6.4-8.2)
[2017-08-01 12:47] LABS: VITAMIN-B12 673 pg/mL (247-911)
[2017-08-01 12:50] LABS: THYROID STIM HORMONE (TSH) 2.693 uIU/mL (0.358-3.74)
[2017-08-01 21:09] LABS: THYROXINE 6.7 ug/dL (4.5-12.0)
== END | disposition home or self-care (01) ==
LOC: LAB 11:16
DX: E03.9 Hypothyroidism, unspecified (principal); G25.2 Other specified forms of tremor; R00.2 Palpitations
CPT/HCPCS: 36415; 80053; 82607; 83735; 84436; 84443; 84481; 85025

== ENCOUNTER → 2017-08-29 | Outpatient (CLI) | payer OTHER ==
[2017-08-29 12:33] LABS: FREE T4 0.88 ng/dL (0.76-1.46)
[2017-08-29 19:15] LABS: T3 TOTAL 103 ng/dL (71-180)
== END | disposition home or self-care (01) ==
LOC: LAB 11:57
DX: Z86.39 Personal history of other endocrine, nutritional and metabolic disease (principal)
CPT/HCPCS: 36415; 84439; 84443; 84480

== ENCOUNTER → 2017-10-03 | Outpatient (CLI) | payer OTHER ==
[2017-10-03 09:13] LABS: THYROID STIM HORMONE (TSH) 3.844 uIU/mL (0.358-3.74)
== END | disposition home or self-care (01) ==
LOC: LAB 08:22
DX: E03.9 Hypothyroidism, unspecified (principal); I10 Essential (primary) hypertension; E78.5 Hyperlipidemia, unspecified
CPT/HCPCS: 36415; 84443

== ENCOUNTER → 2017-11-09 | Outpatient (CLI) | payer OTHER ==
[2017-11-09 15:42] LABS: ADD MAN DIFF? NO
[2017-11-09 15:47] LABS: BASO # 0.1 x10^3/uL (0.0-0.2); BASO % 1 % (0-3); EOS # 0.1 x10^3/uL (0.0-0.7); EOS % 1 % (0-3); HEMATOCRIT 41.2 % (36.0-47.0); LYMPH # 0.9 x10^3/uL (1.0-4.8); LYMPH % 15 % (24-48); MEAN CORPUSCULAR HEMOGLOBIN 33 pg (25-35); MEAN CORPUSCULAR HGB CONC 34 g/dL (31-37); MEAN CORPUSCULAR VOLUME 97 fL (79-100); MONO # 0.1 x10^3/uL (0.0-1.1); MONO % 2 % (0-9); NEUT # 4.7 x10^3uL (1.8-7.7); NEUT % 80 % (31-73); PLATELET COUNT 215 x10^3/uL (140-400); RED BLOOD COUNT 4.26 x10^6/uL (3.50-5.40); RED CELL DISTRIBUTION WIDTH 13.9 % (11.5-14.5); WHITE BLOOD COUNT 5.9 x10^3/uL (4.0-11.0)
[2017-11-09 16:18] LABS: URIC ACID 2.4 mg/dL (2.6-6.0)
[2017-11-09 16:18] LABS: C-REACTIVE PROTEIN 0.9 mg/L (0-3.3)
[2017-11-09 16:56] LABS: SEDIMENTATION RATE 5 (0-25)
[2017-11-10 04:20] LABS: RHEUMATOID FACTOR <10.0 IU/mL (0.0-13.9)
[2017-11-11 17:17] LABS: ANA INTERP Negative (.)
== END | disposition home or self-care (01) ==
LOC: LAB 15:27
DX: M25.50 Pain in unspecified joint (principal); Z82.61 Family history of arthritis
CPT/HCPCS: 36415; 84550; 85025; 85651; 86038; 86140; 86431

== ENCOUNTER 2017-11-28 13:51 | Emergency (ER) | payer OTHER ==
[2017-11-28 14:20] LABS: BILIRUBIN,URINE SMALL (NEG); CLARITY,URINE CLEAR; COLOR,URINE YELLOW; GLUCOSE,URINE NEGATIVE (NEG); NITRITE,URINE NEGATIVE (NEG); PROTEIN,URINE 30 mg/dL (NEG-TRACE)
[2017-11-28 14:21] LABS: URINE HCG POC HCG NEGATIVE (Negative)
[2017-11-28 14:29] LABS: BASO % 0 % (0-3); EOS % 0 % (0-3); HEMATOCRIT 41.5 % (36.0-47.0); HEMOGLOBIN 14.2 g/dL (12.0-15.5); LYMPH # 0.3 x10^3/uL (1.0-4.8); LYMPH % 6 % (24-48); MEAN CORPUSCULAR HEMOGLOBIN 33 pg (25-35); MEAN CORPUSCULAR HGB CONC 34 g/dL (31-37); MEAN CORPUSCULAR VOLUME 96 fL (79-100); MONO # 0.2 x10^3/uL (0.0-1.1); MONO % 5 % (0-9); NEUT # 4.3 x10^3uL (1.8-7.7); NEUT % 89 % (31-73); PLATELET COUNT 183 x10^3/uL (140-400); RED BLOOD COUNT 4.33 x10^6/uL (3.50-5.40); RED CELL DISTRIBUTION WIDTH 12.8 % (11.5-14.5); WHITE BLOOD COUNT 4.8 x10^3/uL (4.0-11.0)
[2017-11-28 14:31] LABS: ADD MAN DIFF? YES
[2017-11-28] MEDS: fentaNYL PF VIAL 100 MCG/2 ML VIAL IV (14:33)
[2017-11-28] MEDS: IV NORMAL SALINE 1000ML BAG 1,000 ML IV (14:33)
[2017-11-28] MEDS: ONDANSETRON PF 4 MG/2 ML VIAL. IV (14:33)
[2017-11-28 14:37] LABS: BACTERIA,URINE FEW /HPF (0-FEW); SQUAMOUS EPITHELIAL CELL,UR MANY /LPF; WBC,URINE RARE /HPF (0-4)
[2017-11-28 14:39] LABS: ANION GAP 9 (6-14); BLOOD UREA NITROGEN 15 mg/dL (7-20); BUN/CREATININE RATIO 21 (6-20); CALCIUM 8.5 mg/dL (8.5-10.1); CARBON DIOXIDE 27 mmol/L (21-32); CHLORIDE 100 mmol/L (98-107); CREATININE 0.7 mg/dL (0.6-1.0); GFR 90.9; GLUCOSE 122 mg/dL (70-99); SODIUM 136 mmol/L (136-145)
[2017-11-28 14:42] LABS: ALBUMIN 3.4 g/dL (3.4-5.0); ALK PHOS 64 U/L (46-116); ALT (SGPT) 26 U/L (14-59); AST (SGOT) 15 U/L (15-37); LIPASE 128 U/L (73-393); TOTAL BILIRUBIN 0.6 mg/dL (0.2-1.0); TOTAL PROTEIN 6.8 g/dL (6.4-8.2)
[2017-11-28] MEDS: IOHEXOL 300 MG/ML 100ML VIAL. IV (14:46)
[2017-11-28 15:15] LABS: % BANDS 3 % (0-9); % LYMPHS 5 % (24-48); % MONOS 1 % (0-10); % SEGS 91 % (35-66)
[2017-11-28 15:18] LABS: PLT ESTIMATE ADEQUATE (ADEQUATE)
== END 2017-11-28 17:12 | disposition home or self-care (01) ==
LOC: ER 13:51
DX: R53.1 Weakness (principal); R11.2 Nausea with vomiting, unspecified; I11.9 Hypertensive heart disease without heart failure; E11.9 Type 2 diabetes mellitus without complications; F03.90 Unspecified dementia, unspecified severity, without behavioral disturbance, psychotic disturbance, mood disturbance, and anxiety; Z95.5 Presence of coronary angioplasty implant and graft; Z98.51 Tubal ligation status; Z90.49 Acquired absence of other specified parts of digestive tract
CPT/HCPCS: 36415; 74177; 80053; 81001; 81025; 83690; 85007; 85025; 96361; 96374; 96375; 99285-25; J2405; J3010; J7030; Q9967

== ENCOUNTER → 2017-12-19 | Outpatient (CLI) | payer OTHER ==
[2017-12-19 10:54] LABS: THYROID STIM HORMONE (TSH) 2.503 uIU/mL (0.358-3.74)
== END | disposition home or self-care (01) ==
LOC: LAB 10:01
DX: E03.9 Hypothyroidism, unspecified (principal); E11.9 Type 2 diabetes mellitus without complications; I11.9 Hypertensive heart disease without heart failure; E78.5 Hyperlipidemia, unspecified; K21.0 Gastro-esophageal reflux disease with esophagitis
CPT/HCPCS: 36415; 84443

== ENCOUNTER → 2017-12-30 | Outpatient (CLI) | payer OTHER | END | disposition home or self-care (01) | LOC: NM 07:24 | DX: G90.01 Carotid sinus syncope (principal); I11.9 Hypertensive heart disease without heart failure; E11.9 Type 2 diabetes mellitus without complications; E03.9 Hypothyroidism, unspecified; G43.909 Migraine, unspecified, not intractable, without status migrainosus; I25.10 Atherosclerotic heart disease of native coronary artery without angina pectoris; K21.0 Gastro-esophageal reflux disease with esophagitis; Z90.49 Acquired absence of other specified parts of digestive tract | CPT/HCPCS: 78264; A9541 ==

== ENCOUNTER → 2018-03-13 | Outpatient (CLI) | payer OTHER ==
[2017-11-28 14:01] VITALS: BP 122/63
[~2018-03-13] MED LIST changes: +ALPR0.25 PO; +ALPR0.5T PO; +AMLO2.5T3 PO; +ASPI-612 PO; +BUPR150T8 PO; +CLOP75TA PO; +DEXL60CA2 PO; +DICL75TA PO; -HYDROmorphone 2 MG/ML VIAL IV; -IV RINGERS,LACTATED 1000ML 1,000 ML IV; +LEVO25TA55 PO; -LIDOCAINE 1% PF 2 ML VIAL. ID; +LIOT5TAB11 PO; +LORA10TA68 PO; -MORPHINE SULFATE 2 MG/ML DISP.SYRIN. IV; +ONDA4TAB10 SL; -ONDANSETRON PF 4 MG/2 ML VIAL. IV; +PANT40TA3 PO; -PROCHLORPERAZINE 10 MG/2 ML VIAL. IV; -PROPOFOL 20 ML IV; +RANI300C PO; +ROSU5TAB11 PO; +TICA90TA PO; +TOPI25TA52 PO; -fentaNYL PF VIAL 100 MCG/2 ML VIAL IV
--- NOTE | 2018-03-13 14:50 | KCIC ---
Esophagram HISTORY: Chronic reflux, worse for 2 months. Fluoroscopy time: 6 minutes 51 seconds. FINDINGS: Fluoroscopy was performed during ingestion of effervescent, thin barium and thick barium. Mild penetration of contrast was noted into the larynx. This did not elicit a cough reflex. Esophagus demonstrates normal caliber. No mucosal abnormalities, fixed filling defect or fixed stricture is identified. Gastroesophageal reflux was not identified, despite provocative maneuvers. Esophageal motility appeared within normal limits. IMPRESSION: 1. Subtle laryngeal penetration was demonstrated. This did not elicit a cough reflex. Recommend consultation with speech pathology. 2. Otherwise unremarkable esophagram. Electronically signed by: Omi Ashford MD (03/13/2018 2:46 PM) [facility]-KC[facility]2
== END | disposition home or self-care (01) ==
LOC: KCIC 07:53
PROVIDERS: ATTEND Physician Assistant
DX: K21.9 Gastro-esophageal reflux disease without esophagitis (principal); I11.9 Hypertensive heart disease without heart failure; E11.9 Type 2 diabetes mellitus without complications; G43.909 Migraine, unspecified, not intractable, without status migrainosus; E03.9 Hypothyroidism, unspecified; I25.10 Atherosclerotic heart disease of native coronary artery without angina pectoris; Z87.891 Personal history of nicotine dependence; Z86.19 Personal history of other infectious and parasitic diseases; Z95.5 Presence of coronary angioplasty implant and graft; Z86.39 Personal history of other endocrine, nutritional and metabolic disease; Z90.49 Acquired absence of other specified parts of digestive tract; Z88.1 Allergy status to other antibiotic agents; Z88.8 Allergy status to other drugs, medicaments and biological substances; Z82.49 Family history of ischemic heart disease and other diseases of the circulatory system; Z82.3 Family history of stroke; Z80.0 Family history of malignant neoplasm of digestive organs; Z82.61 Family history of arthritis
CPT/HCPCS: 74220

== ENCOUNTER → 2018-04-12 | Outpatient (CLI) | payer OTHER ==
[2017-11-28 14:01] VITALS: BP 122/63
--- NOTE | 2018-04-12 16:09 | KCIC ---
LUMBAR SPINE 2-3V History: Lumbar pain with palpation on recent physical exam Comparison: Reconstruction images November 28, 2017 CT abdomen pelvis exam Findings: 3 views of the lumbar spine are submitted. Lumbar vertebral body stature and AP alignment are maintained. There is some residual oral contrast mixed with retained stool throughout the colon, contrast presumably from recent video swallow study. There is resultant partial obscuration of the bones. Impression: 1. No convincing acute abnormality is identified by radiographs. There is some retained oral contrast mixed with stool in the colon. Electronically signed by: Samy Enciso MD (04/12/2018 4:06 PM) [facility]-KC[facility]1
--- NOTE | 2018-04-12 16:24 | KCIC ---
History: Left hip pain. M 25.552. Comparison: None. Findings: AP view of the pelvis. AP and frog-leg views of left hip. No acute fracture or dislocation is identified. Small dysplastic bump is seen at the lateral femoral head-neck junction, could predispose to cam-type femoral acetabular impingement. Impression: 1. Mild irregularity of the left lateral femoral head-neck junction, could predispose to cam-type femoral acetabular impingement. Recommend clinical correlation. Electronically signed by: Omi Cannon MD (04/12/2018 4:21 PM) [place] [id number]
== END | disposition home or self-care (01) ==
LOC: KCIC 13:02
PROVIDERS: ATTEND Nurse Practitioner Family
DX: M54.5 Low back pain (principal); M25.552 Pain in left hip; K56.41 Fecal impaction
CPT/HCPCS: 72100; 73502

== ENCOUNTER → 2018-05-01 | Outpatient (CLI) | payer OTHER ==
[2017-11-28 14:01] VITALS: BP 122/63
[2018-05-03 19:17] LABS: CODFISH <0.10 kU/L (Class 0); CORN <0.10 kU/L (Class 0); EGG WHITE <0.10 kU/L (Class 0); MILK <0.10 kU/L (Class 0); PEANUT <0.10 kU/L (Class 0); SCALLOP <0.10 kU/L (Class 0); SHRIMP <0.10 kU/L (Class 0); SOYBEAN <0.10 kU/L (Class 0); WALNUT <0.10 kU/L (Class 0); WHEAT <0.10 kU/L (Class 0)
== END | disposition home or self-care (01) ==
LOC: LAB 07:38
PROVIDERS: ATTEND Nurse Practitioner Family
DX: K21.9 Gastro-esophageal reflux disease without esophagitis (principal); R68.89 Other general symptoms and signs
CPT/HCPCS: 36415; 86001

== ENCOUNTER → 2018-12-12 | Outpatient (CLI) | payer OTHER ==
[2017-11-28 14:01] VITALS: BP 122/63
[~2018-12-12] MED LIST changes: -AMLO2.5T3 PO; +AMLO2.5T5 PO; -PANT40TA3 PO; +PANT40TA77 PO; -ROSU5TAB11 PO; +ROSU5TAB12 PO
[2018-12-12 08:30] LABS: BASO # 0.1 x10^3/uL (0.0-0.2); BASO % 1 % (0-3); EOS # 0.1 x10^3/uL (0.0-0.7); EOS % 2 % (0-3); HEMATOCRIT 39.3 % (36.0-47.0); HEMOGLOBIN 13.1 g/dL (12.0-15.5); LYMPH # 1.5 x10^3/uL (1.0-4.8); LYMPH % 37 % (24-48); MEAN CORPUSCULAR HEMOGLOBIN 32 pg (25-35); MEAN CORPUSCULAR HGB CONC 33 g/dL (31-37); MEAN CORPUSCULAR VOLUME 96 fL (79-100); MONO # 0.4 x10^3/uL (0.0-1.1); MONO % 9 % (0-9); NEUT # 2.1 x10^3uL (1.8-7.7); NEUT % 51 % (31-73); PLATELET COUNT 206 x10^3/uL (140-400); RED CELL DISTRIBUTION WIDTH 13.3 % (11.5-14.5); WHITE BLOOD COUNT 4.2 x10^3/uL (4.0-11.0)
[2018-12-12 08:51] LABS: ALBUMIN 3.6 g/dL (3.4-5.0); ALBUMIN/GLOBULIN RATIO 1.1 (1.0-1.7); CALCIUM 8.6 mg/dL (8.5-10.1); CREATININE 0.8 mg/dL (0.6-1.0); GFR 77.6; POTASSIUM 4.3 mmol/L (3.5-5.1); TOTAL BILIRUBIN 0.5 mg/dL (0.2-1.0)
[2018-12-12 08:54] LABS: CHOLESTEROL/HDL RATIO 2.2
== END | disposition home or self-care (01) ==
LOC: LAB 08:05
PROVIDERS: ATTEND Internal Medicine Cardiovascular Disease
DX: I25.10 Atherosclerotic heart disease of native coronary artery without angina pectoris (principal)
CPT/HCPCS: 36415; 80053; 80061; 83721; 84443; 85025

== ENCOUNTER → 2018-12-28 | Outpatient (CLI) | payer OTHER ==
[2017-11-28 14:01] VITALS: BP 122/63
--- NOTE | 2018-12-28 14:23 | CARD ---
MR#: [id number] Date of Study: 12/28/2018 Ordering Physician: JENELLE ABBOTT, Referring Physician: JENELLE ABBOTT, Tech: Dionna Ross APPROVED REPORT EXAM: Two-dimensional and M-mode echocardiogram with Doppler and color Doppler. Other Information Quality : GoodHR: 65bpm INDICATION CAD RISK FACTORS Previous smoker 2D DIMENSIONS RVDd3.4 (2.9-3.5cm)Left Atrium(2D)3.0 (1.6-4.0cm) IVSd0.9 (0.7-1.1cm)Aortic Root(2D)2.8 (2.0-3.7cm) LVDd3.9 (3.9-5.9cm)LVOT Diameter1.9 (1.8-2.4cm) PWd0.8 (0.7-1.1cm)LVDs2.8 (2.5-4.0cm) FS (%) 29.4 %SV38.3 ml LVEF(%)57.0 (>50%) Aortic Valve AoV Peak Ferdinand.129.3cm/sAoV VTI27.1cm AO Peak GR.6.7mmHgLVOT Peak Ferdinand.103.7cm/s AO Mean GR.4mmHgAVA (VMAX)2.33cm2 Mitral Valve MV E Kxlzdjue36.1cm/sMV DECEL SFLD363um MV A Guswizkp38.2cm/sE/A Ratio1.5 Pulmonary Valve PV Peak Bsgyftmv26.3cm/s Tricuspid Valve TR P. Cvkxrebl961cn/sRAP DSGCKXAA2nxLj TR Peak Gr.55seVgQBWG80chQj Pulmonary Vein S1 Btmtqqgh24.3cm/sD2 Oddhxkse91.7cm/s PVa [id number] LEFT VENTRICLE The left ventricle is normal size. There is normal left ventricular wall thickness. The left ventricu lar systolic function is normal. The Ejection Fraction is 55-60%. There is normal LV segmental wall m otion. The left ventricular diastolic function and filling is normal for age. RIGHT VENTRICLE The right ventricle is normal size. There is normal right ventricular wall thickness. The right ventr icular systolic function is normal. ATRIA The left atrium size is normal. The right atrium size is normal. The interatrial septum is intact wit h no evidence for an atrial septal defect or patent foramen ovale as noted on 2-D or Doppler imaging. AORTIC VALVE The aortic valve is normal in structure and function. Doppler and Color Flow revealed no significant aortic regurgitation. There is no significant aortic valvular stenosis. MITRAL VALVE The mitral valve is normal in structure and function. There is no evidence of mitral valve prolapse. There is no mitral valve stenosis. Doppler and Color-flow revealed trace mitral regurgitation. TRICUSPID VALVE The tricuspid valve is normal in structure and function. Doppler and Color Flow revealed trace tricus pid regurgitation with an estimated PAP of 24 mmHg. There is no tricuspid valve stenosis. PULMONIC VALVE The pulmonic valve is not well visualized. Doppler and Color Flow revealed no pulmonic valvular regur gitation. GREAT VESSELS The aortic root is normal in size. The IVC is normal in size and collapses >50% with inspiration. PERICARDIAL EFFUSION There is no evidence of significant pericardial effusion. Critical Notification Critical Value: No <Conclusion> The left ventricular systolic function is normal. The Ejection Fraction is 55-60%. There is normal LV segmental wall motion. Trace mitral regurgitation. Trace tricuspid regurgitation with an estimated PAP of 24 mmHg. There is no evidence of significant pericardial effusion. Signed by : Chaitanya Diaz, Electronically Approved : 12/28/2018 14:22:46
== END | disposition home or self-care (01) ==
LOC: ECHO 12:38
PROVIDERS: ATTEND Internal Medicine Cardiovascular Disease
DX: I25.10 Atherosclerotic heart disease of native coronary artery without angina pectoris (principal)
CPT/HCPCS: 93306

== ENCOUNTER → 2019-03-02 | Outpatient (CLI) | payer OTHER ==
[2017-11-28 14:01] VITALS: BP 122/63
== END | disposition home or self-care (01) ==
LOC: LAB 13:33
PROVIDERS: ATTEND Physician Assistant
DX: Z51.81 Encounter for therapeutic drug level monitoring (principal); Z79.899 Other long term (current) drug therapy
CPT/HCPCS: 36415; 82607; 83735

== ENCOUNTER → 2019-04-24 | Outpatient (CLI) | payer OTHER ==
[2017-11-28 14:01] VITALS: BP 122/63
[2019-04-24 13:34] LABS: FREE T4 0.91 ng/dL (0.76-1.46); THYROID STIM HORMONE (TSH) 2.858 uIU/mL (0.358-3.74)
== END | disposition home or self-care (01) ==
LOC: LAB 12:14
PROVIDERS: ATTEND Family Medicine
DX: E03.9 Hypothyroidism, unspecified (principal)
CPT/HCPCS: 36415; 84436; 84439; 84443

== ENCOUNTER 2019-08-10 15:22 | Emergency (ER) | payer OTHER ==
[~2019-08-10] VITALS: Ht 162.6 cm; Wt 77.2 kg
[2019-08-10] MEDS ORDERED: KETOROLAC 30 MG/ML VIAL. IM ONE (15:30)
[2019-08-10 15:34] VITALS: BP 115/65
--- NOTE | 2019-08-10 15:39 | PHYS DOC ---
Past Medical History Past Medical History: No Pertinent History Past Surgical History: Angioplasty Additional Past Surgical Histo: CARPAL TUNNEL, ENDOMETRIAL ABLISION Smoking Status: Former Smoker Alcohol Use: None Drug Use: None Adult General Chief Complaint Chief Complaint: HEADACHE HPI HPI Patient is a 43 year old female with history of migraine headaches presenting to the ED today complaining of a 3 out of 10 throbbing frontal migraine headache that began last night. Patient tried hvbu-ppr-ceufqcs remedies with no relief. She reports Toradol injection typically helps. Patient denies any active nausea vomiting. Denies this headache being different from her normal migraine. Review of Systems Review of Systems Constitutional: Denies fever or chills [] Eyes: Denies change in visual acuity, redness, or eye pain [] HENT: Denies nasal congestion or sore throat [] Respiratory: Denies cough or shortness of breath [] Cardiovascular: No additional information not addressed in HPI [] GI: Denies abdominal pain, nausea, vomiting, bloody stools or diarrhea [] : Denies dysuria or hematuria [] Musculoskeletal: Denies back pain or joint pain [] Integument: Denies rash or skin lesions [] Neurologic: Reports migraine headache, denies focal weakness or sensory changes [] All other systems were reviewed and found to be within normal limits, except as documented in this note. Current Medications Current Medications Current Medications Medications (Trade) Dose Ordered Sig/Lauren Start Time Stop Time Status Last Admin Dose Admin Ketorolac Tromethamine (Toradol 30mg Vial) 30 mg 1X ONCE 08/10/19 15:30 08/10/19 15:35 DC 08/10/19 15:42 30 MG Allergies Allergies Allergies Coded Allergies Type Severity Reaction Last Updated Verified propoxyphene Allergy Intermediate Hives 02/25/14 Yes Physical Exam Physical Exam Constitutional: Well developed, well nourished, no acute distress, non-toxic appearance. [] HENT: Normocephalic, atraumatic, bilateral external ears normal, oropharynx moist, no oral exudates, nose normal. [] Eyes: PERRLA, EOMI, conjunctiva normal, no discharge. [] Neck: Normal range of motion, no tenderness, supple, no stridor. [] Cardiovascular:Heart rate regular rhythm, no murmur [] Lungs & Thorax: Bilateral breath sounds clear to auscultation [] Abdomen: Bowel sounds normal, soft, no tenderness, no masses, no pulsatile masses. [] Skin: Warm, dry, no erythema, no rash. [] Back: No tenderness, no CVA tenderness. [] Extremities: No tenderness, no cyanosis, no clubbing, ROM intact, no edema. [] Neurologic: Alert and oriented X 3, normal motor function, normal sensory function, no focal deficits noted. Cranial nerves II through XII intact Psychologic: Affect normal, judgement normal, mood normal. [] Current Patient Data Vital Signs Vital Signs Date Time Temp Pulse Resp B/P (MAP) Pulse Ox O2 Delivery O2 Flow Rate FiO2 08/10/19 15:34 98.0 66 18 115/65 (82) 100 Room Air 98.0 EKG EKG [] Radiology/Procedures Radiology/Procedures [] Course & Med Decision Making Course & Med Decision Making Pertinent Labs and Imaging studies reviewed. (See chart for details) This is a 43-year-old female patient presenting to the ED today with a migraine headache. There is nothing unusual about her migraine. Patient was given Toradol injection and discharged Dragon Disclaimer Dragon Disclaimer This electronic medical record was generated, in whole or in part, using a voice recognition dictation system. Departure Departure Impression: Primary Impression: Migraine headache Disposition: HOME, SELF-CARE Condition: STABLE Referrals: PETR SON MD (PCP) follow up with your doctor in 1-2 weeks Patient Instructions: Migraine Headache, [id number] Additional Instructions: Please follow-up with your doctor next week. You can take brpy-bil-pkvnejt remedies for a migraine headache as needed over the weekend. Come back to the ED at any point symptoms worsen. Problem Qualifiers Primary Impression: Migraine headache Migraine type: without aura Status migrainosus presence: without status migrainosus Intractability: not intractable Qualified Codes: G43.009 - Migraine without aura, not intractable, without status migrainosus APRIL IBARRA APRN Aug 10, 2019 15:39
== END 2019-08-10 15:44 | disposition home or self-care (01) ==
LOC: ER 15:22
DX: G43.009 Migraine without aura, not intractable, without status migrainosus (principal); Z87.891 Personal history of nicotine dependence; Z98.890 Other specified postprocedural states; Z88.6 Allergy status to analgesic agent
CPT/HCPCS: 96372; 99283; J1885

== ENCOUNTER → 2019-10-08 | Outpatient (CLI) | payer OTHER | END | disposition home or self-care (01) | LOC: LAB 13:21 | PROVIDERS: ATTEND Internal Medicine Pulmonary Disease | DX: R06.03 Acute respiratory distress (principal); Z20.828 Contact with and (suspected) exposure to other viral communicable diseases | CPT/HCPCS: 36415; 87635 ==

== ENCOUNTER → 2019-12-12 | Outpatient (CLI) | payer OTHER ==
[~2019-12-12] MED LIST changes: -ASPI-612 PO; +ASPI-886 PO
[2019-12-12 10:20] LABS: CHOLESTEROL/HDL RATIO 2.2
== END | disposition home or self-care (01) ==
LOC: LAB 09:28
PROVIDERS: ATTEND Internal Medicine Cardiovascular Disease
DX: I25.10 Atherosclerotic heart disease of native coronary artery without angina pectoris (principal)
CPT/HCPCS: 36415; 80061

== ENCOUNTER → 2020-01-15 | Outpatient (CLI) | payer OTHER ==
--- NOTE | 2020-01-15 10:24 | CARD ---
MR#: [id number] Date of Study: 01/15/2020 Ordering Physician: JENELLE ABBOTT, Referring Physician: JENELLE ABBTOT, Tech: Dionna Ross APPROVED REPORT EXAM: Two-dimensional and M-mode echocardiogram with Doppler and color Doppler. Other Information Quality : AverageHR: 68bpm INDICATION Cardiac Disease: CAD 2D DIMENSIONS RVDd2.8 (2.9-3.5cm)Left Atrium(2D)3.2 (1.6-4.0cm) IVSd1.0 (0.7-1.1cm)Aortic Root(2D)2.6 (2.0-3.7cm) LVDd4.2 (3.9-5.9cm)LVOT Diameter2.0 (1.8-2.4cm) PWd0.8 (0.7-1.1cm)LVDs3.2 (2.5-4.0cm) FS (%) 25.4 %SV40.7 ml LVEF(%)50.5 (>50%) Aortic Valve AoV Peak Ferdinand.140.6cm/sAoV VTI26.6cm AO Peak GR.7.9mmHgLVOT Peak Ferdinand.130.5cm/s LVOT VTI 28.12cmAO Mean GR.4mmHg COLIN (VMAX)2.46re6ELE (VTI)3.44cm2 Mitral Valve MV E Xsuitoll58.8cm/sMV DECEL [id number] MV A Ahhqbpsb92.9cm/sMV E Mean Gr.2mmHg MV WDX57dyH/A Ratio1.7 MVA (PHT)3.49cm2 TDI E/Lateral E'5.3E/Medial E'7.6 Pulmonary Valve PV Peak Kkwwhdvs440.0cm/sPV Peak Grad.5mmHg Tricuspid Valve TR P. Mgzswsld970yu/sRAP BWWVQMPX9ydSx TR Peak Gr.00yxWhROCR44ddTi Pulmonary Vein S1 Jlcmgjhm57.1cm/sD2 Ydjkwrri59.4cm/s PVa cvdtdrot639vwbm LEFT VENTRICLE The left ventricle is normal size. There is normal left ventricular wall thickness. The left ventricu lar systolic function is normal. The Ejection Fraction is 55%. There is normal LV segmental wall julisa on. The left ventricular diastolic function and filling is normal for age. RIGHT VENTRICLE The right ventricle is normal size. There is normal right ventricular wall thickness. The right ventr icular systolic function is normal. ATRIA The left atrium size is normal. The right atrium size is normal. The interatrial septum is intact wit h no evidence for an atrial septal defect or patent foramen ovale as noted on 2-D or Doppler imaging. AORTIC VALVE The aortic valve is normal in structure and function. Doppler and Color Flow revealed no significant aortic regurgitation. Calculated aortic valve area is 3.4 cm2 with maximum pressure gradient of 8 mmH g and mean pressure gradient of 4 mmHg. There is no significant aortic valvular stenosis. MITRAL VALVE The mitral valve is normal in structure and function. There is no evidence of mitral valve prolapse. There is no mitral valve stenosis. Doppler and Color-flow revealed trace mitral regurgitation. TRICUSPID VALVE The tricuspid valve is normal in structure and function. Doppler and Color Flow revealed trace tricus pid regurgitation with an estimated PAP of 35 mmHg. There is no tricuspid valve stenosis. GREAT VESSELS The aortic root is normal in size. The ascending aorta is normal in size. The IVC is dilated. PERICARDIAL EFFUSION There is no evidence of significant pericardial effusion. Critical Notification Critical Value: No <Conclusion> The left ventricular systolic function is normal. The Ejection Fraction is 55%. There is normal LV segmental wall motion. Trace mitral regurgitation. Trace tricuspid regurgitation with an estimated PAP of 35 mmHg. There is no evidence of significant pericardial effusion. Signed by : Chaitanya Diaz, Electronically Approved : 01/15/2020 10:23:21
== END | disposition home or self-care (01) ==
LOC: ECHO 07:45
PROVIDERS: ATTEND Internal Medicine Cardiovascular Disease
DX: I25.10 Atherosclerotic heart disease of native coronary artery without angina pectoris (principal)
CPT/HCPCS: 93306

== ENCOUNTER → 2020-06-12 | Outpatient (CLI) | payer OTHER ==
[2020-06-12 08:32] LABS: HEMATOCRIT 41.5 % (36.0-47.0); HEMOGLOBIN 13.6 g/dL (12.0-15.5); RED BLOOD COUNT 4.26 x10^6/uL (3.50-5.40); RED CELL DISTRIBUTION WIDTH 12.8 % (11.5-14.5); WHITE BLOOD COUNT 4.2 x10^3/uL (4.0-11.0)
[2020-06-12 08:52] LABS: ALBUMIN 3.9 g/dL (3.4-5.0); ALBUMIN/GLOBULIN RATIO 1.4 (1.0-1.7); CALCIUM 9.1 mg/dL (8.5-10.1); CREATININE 0.6 mg/dL (0.6-1.0); GFR 107.6; POTASSIUM 4.3 mmol/L (3.5-5.1); TOTAL BILIRUBIN 0.6 mg/dL (0.2-1.0); TOTAL PROTEIN 6.7 g/dL (6.4-8.2)
[2020-06-12 08:53] LABS: CHOLESTEROL/HDL RATIO 2.5
[2020-06-12 09:20] LABS: FREE T4 0.97 ng/dL (0.76-1.46); THYROID STIM HORMONE (TSH) 3.328 uIU/mL (0.358-3.74)
== END ==
LOC: LAB 07:18
PROVIDERS: ATTEND Nurse Practitioner Family
DX: I25.10 Atherosclerotic heart disease of native coronary artery without angina pectoris (principal); F41.9 Anxiety disorder, unspecified; E03.9 Hypothyroidism, unspecified
CPT/HCPCS: 36415; 80053; 80061; 82306; 83540; 83550; 84439; 84443; 85027

== ENCOUNTER → 2020-07-29 | Outpatient (CLI) | payer OTHER ==
[~2020-07-29] MED LIST changes: +0.9 % SODIUM CHLORIDE 10 ML DISP.SYRIN. ID ONE; +GADOTERATE 5 MMOL/10ML VIAL. INT ART ONE; +IOHEXOL 300 MG/ML 50 ML VIAL. INT ART ONE; +LIDOCAINE 1% Multi-Dose 20 ML VIAL. ID ONE
--- NOTE | 2020-07-29 15:02 | KCIC ---
Clinical indications: Left shoulder pain. Pain in the biceps area for 6 months. Procedure: The procedure and possible complications including bleeding and infection were explained. The patient provided both verbal and written consent. A timeout was performed confirming the name of the patient and date of and the procedure and side of the procedure. No allergies to medication s utilized today. The anterior aspect of the left shoulder was prepped and draped in the usual steril e fashion with ChloraPrep. A total of 3 cc of 1% lidocaine was utilized for local anesthesia. Using s terile technique and fluoroscopic guidance, a 22-gauge spinal needle was directed into the left gleno humeral joint from an anterior approach. A solution containing 10 cc of sterile normal saline and 10 cc of Omnipaque 300 and 0.2 cc of gadolinium was injected intra-articularly under fluoroscopic observ ation and 2 fluoroscopic spot views of the left shoulder were performed which confirmed intra-articul ar position of the contrast. The needle was removed and hemostasis was adequate. A sterile bandage wa s applied to the puncture site. The patient tolerated the procedure well without complication and was sent to the MRI suite for further imaging. Total fluoroscopic time: 8 seconds. 2 fluoroscopic spot images were performed. FINDINGS: No extravasation of contrast material into the subdeltoid or subacromial bursa is seen. IMPRESSION: Fluoroscopic guided left shoulder injection was performed prior to an MRI study. Electronically signed by: Leodan Mcdaniel MD (07/29/2020 3:00 PM) [id number]
--- NOTE | 2020-07-29 15:16 | KCIC ---
MRI LEFT SHOULDER ARTHROGRAM Clinical indications: Left shoulder pain in the biceps area for 6 months. No known injury. TECHNIQUE: After intra-articular injection of gadolinium, post arthrogram MRI sequences of the left cassidy villar were performed in all 3 planes. The intra-articular injection of gadolinium was dictated unde r separate report. FINDINGS: No extravasation of contrast is seen extending into the substance of the rotator cuff or garland bdeltoid/subacromial bursa. Therefore, no partial articular surface tear or complete tear of the rota tor cuff is seen. On the T2-weighted images, there is increased signal within the supraspinatus tendo n consistent with tendinosis. There is a more focally prominent area of edema of the lateral central aspect of the supraspinatus tendon more superficial in location seen on series 7 and image 11. This m ay represent acute tendinitis. No calcification is seen in this area on recent radiographic study hugo ed July 14, 2020. There is mild subdeltoid and subacromial bursitis. 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 There is a small spur of the lateral inferior aspect of the acromial pr ocess. These findings may impinge the acromial humeral space. A type II acromial process is seen. The re is bone marrow edema of the lateral aspect of the humeral head which may be secondary to impingeme nt. Subscapularis tendon is intact. The tendon of the long of the biceps is intact. No muscle atrophy is seen. The glenohumeral joint is normal and no loose body is seen. On series 6 and images 10 and 1 1, there is a small linear focus of contrast seen extending between the superior labrum and the gleno id articular cartilage which measures 2 mm in depth. This may represent a small chondrolabral tear. N o paralabral or spinoglenoid notch ganglion cyst is seen. No fracture or marrow infiltrative process is seen. IMPRESSION: Tendinosis of the supraspinatus tendon. More focally prominent edema and enlargement of t he lateral aspect of the supraspinatus tendon is seen more superficially towards the bursal side whic h may indicate more focally prominent acute tendinitis. No complete rotator cuff tear or partial gisselle cular surface tear of the rotator cuff is seen. Mild impingement of the acromial humeral space. Mild subdeltoid/subacromial bursitis. Small chondrolabral tear of the superior aspect of the glenoid labrum. Electronically signed by: Leodan Mcdaniel MD (07/29/2020 3:14 PM) [id number]
== END | disposition home or self-care (01) ==
LOC: KCIC 12:40
PROVIDERS: ATTEND Orthopaedic Surgery
DX: M25.512 Pain in left shoulder (principal); M75.52 Bursitis of left shoulder; K21.9 Gastro-esophageal reflux disease without esophagitis; M19.90 Unspecified osteoarthritis, unspecified site; E03.9 Hypothyroidism, unspecified; F41.9 Anxiety disorder, unspecified; F32.9 Major depressive disorder, single episode, unspecified; Z79.82 Long term (current) use of aspirin; Z79.899 Other long term (current) drug therapy; Z87.891 Personal history of nicotine dependence; Z88.8 Allergy status to other drugs, medicaments and biological substances; Z82.49 Family history of ischemic heart disease and other diseases of the circulatory system; Z80.0 Family history of malignant neoplasm of digestive organs
CPT/HCPCS: 23350; 73222; 77002; A9575; J3490; Q9967; 73040

== ENCOUNTER → 2020-08-20 | Outpatient (CLI) | payer OTHER ==
[~2020-08-20] MED LIST changes: -0.9 % SODIUM CHLORIDE 10 ML DISP.SYRIN. ID ONE; -GADOTERATE 5 MMOL/10ML VIAL. INT ART ONE; -IOHEXOL 300 MG/ML 50 ML VIAL. INT ART ONE; -LIDOCAINE 1% Multi-Dose 20 ML VIAL. ID ONE
[2020-08-20 10:11] LABS: ALBUMIN/GLOBULIN RATIO 1.3 (1.0-1.7); CALCIUM 8.6 mg/dL (8.5-10.1); CREATININE 0.9 mg/dL (0.6-1.0); GFR 67.4; POTASSIUM 4.8 mmol/L (3.5-5.1); TOTAL BILIRUBIN 0.7 mg/dL (0.2-1.0); TOTAL PROTEIN 7.2 g/dL (6.4-8.2)
[2020-08-20 10:12] LABS: CHOLESTEROL/HDL RATIO 2.7
== END ==
LOC: LAB 09:43
PROVIDERS: ATTEND Family Medicine
DX: E78.5 Hyperlipidemia, unspecified (principal)
CPT/HCPCS: 36415; 80053; 80061

== ENCOUNTER → 2020-11-21 | Outpatient (CLI) | payer OTHER ==
[~2020-11-21] MED LIST changes: +CONTRAST GIVEN. MC PRN; +IOHEXOL 300 MG/ML 100ML VIAL. IV ONE; +IOHEXOL 350 MG/ML 100 ML VIAL. IV ONE
--- NOTE | 2020-11-21 09:45 | RAD ---
EXAM: 1. CTA HEAD WITH AND WITHOUT CONTRAST. 2. CTA NECK WITH AND WITHOUT CONTRAST. HISTORY: Intracranial aneurysm. TECHNIQUE: Computed tomographic angiography of the head and neck was performed before and after the i ntravenous administration of iodinated contrast. Three-dimensional reconstructions were also performe d. One or more of the following individualized dose reduction techniques were utilized for this exami nation: 1. Automated exposure control. 2. Adjustment of the mA and/or kV according to patient size. 3. Use of iterative reconstruction technique. COMPARISON: 07/28/2012, report only. FINDINGS: Angiographic findings: The aortic arch has a typical branching pattern. There is no arch vessel steno sis. Both common carotid arteries are patent without stenosis. Both internal carotid arteries are patent w ithout stenosis. The external carotid systems are patent. The vertebral arteries are patent. The basilar artery is patent. Both posterior cerebral arteries are patent. The posterior communicatin g arteries are visualized. There are minimal atherosclerotic calcifications along the right cavernous internal carotid artery. T he intracranial internal carotid arteries demonstrate no stenosis. The middle cerebral arteries are p atent. The right A1 segment is small and the main supply to the right A2 segment is the anterior comm unicating artery. Both anterior cerebral arteries are patent more distally. Nonangiographic findings: There is no intracranial hemorrhage. Helm-white differentiation is preserve d. The ventricles are normal in size and position. The paranasal sinuses appear clear. The orbits are unremarkable. The temporal bones are unremarkable. Bone windows reveal no suspicious lesions. The lung apices demonstrate no acute abnormality. The parotid glands and submandibular glands are unremarkable. The thyroid gland demonstrates no suspi cious lesions. There are no laryngeal or pharyngeal masses. There are no pathologically enlarged lymph nodes. IMPRESSION: 1. No hemodynamically significant cervical arterial stenosis. 2. No intracranial stenosis or aneurysm. PQRS Compliance Statement - Stenosis calculations for CT, MR and conventional angiography are based u talat measurement of the distal ICA diameter in accordance with the NASCET methodology. Stenosis calcu lations for carotid ultrasound studies are derived from validated velocity criteria which are known t o correlate with the NASCET methodology. Electronically signed by: Chaparro Avalos MD (11/21/2020 9:43 AM) [id number]
== END ==
LOC: CT 08:04
PROVIDERS: ATTEND Internal Medicine Cardiovascular Disease
DX: I67.1 Cerebral aneurysm, nonruptured (principal); I25.10 Atherosclerotic heart disease of native coronary artery without angina pectoris
CPT/HCPCS: 70496; 70498; Q9967